=== PATIENT | female | born 1935 | race Caucasian/White ===

== ENCOUNTER 2018-03-31 16:05 | Inpatient (IN) | payer MEDICARE, OTHER ==
[2018-03-31] MEDS: SOD CHLORIDE 0.9% 500 ML IV (16:48)
[2018-03-31 16:55] LABS: ADD MAN DIFF? NO
[2018-03-31 16:59] LABS: BASOPHILS % 0.5 % (0.0-2.0); EOSINOPHILS # 0.1 10^3/ul (0.0-0.5); EOSINOPHILS % 1.2 % (0.0-7.0); HEMATOCRIT 24.5 % (37.0-47.0); HEMOGLOBIN 7.6 g/dl (12.0-16.0); LYMPHOCYTES # 0.8 10^3/ul (0.8-2.9); LYMPHOCYTES % 10.1 % (15.0-51.0); MEAN CORPUSCULAR HEMOGLOBIN 34.1 pg (29.0-33.0); MEAN CORPUSCULAR VOLUME 109.9 fl (82.0-101.0); MEAN PLATELET VOLUME 9.1 fl (7.4-10.4); MONOCYTE # 0.6 10^3/ul (0.3-0.9); MONOCYTES % 7.5 % (0.0-11.0); NEUTROPHIL # 6.5 10^3/ul (1.6-7.5); NEUTROPHILS % 80.2 % (39.0-77.0); PLATELET COUNT 223 10^3/UL (140-415); RED BLOOD COUNT 2.23 10^6/ul (4.20-5.40); RED CELL DISTRIBUTION WIDTH 13.9 % (11.5-14.5)
[2018-03-31 16:59] LABS: WHITE BLOOD COUNT 8.1 10^3/ul (4.8-10.8)
[2018-03-31 17:21] LABS: ALANINE AMINOTRANSFERASE 20 IU/L (13-69); ALBUMIN 3.9 g/dl (3.3-4.9); ALBUMIN/GLOBULIN RATIO 1.44; ALKALINE PHOSPHATASE 55 IU/L (42-121); ANION GAP 11 (5-13); ASPARTATE AMINO TRANSFERASE 27 IU/L (15-46); BLOOD UREA NITROGEN 43 mg/dl (7-20); CALCIUM 9.4 mg/dl (8.4-10.2); CARBON DIOXIDE 26 mmol/L (21-31); CHLORIDE 102 mmol/L (97-110); CREATININE 1.88 mg/dl (0.44-1.00); GLUCOSE 117 mg/dl (70-220); POTASSIUM 4.4 mmol/L (3.5-5.1); SODIUM 139 mmol/L (135-144); TOTAL PROTEIN 6.6 g/dl (6.1-8.1)
[2018-03-31 17:25] LABS: INR 1.29; PROTIME 16.2 Sec (11.9-14.9); PT RATIO 1.3
[2018-03-31 17:26] LABS: PARTIAL THROMBOPLASTIN TIME 30.1 Sec (23.0-35.0)
[2018-03-31] MEDS ORDERED: ACETAMINOPHEN 325 MG TAB PO (21:00)
[2018-03-31] MEDS ORDERED: ONDANSETRON 4 MG INJ IV (21:00)
[2018-03-31] MEDS ORDERED: NACL 0.9% 3 ML SYG IV (21:30)
[2018-03-31 23:40] LABS: IMMEDIATE SPIN CROSSMATCH 1 2
[2018-03-31] MEDS: PANTOPRAZOLE 40 MG INJ IV (23:40)
[2018-04-01] MEDS: DEXTROSE 5% 1,000 ML IV ×3 (03:11→23:13)
[2018-04-01 05:54] LABS: ADD MAN DIFF? NO
[2018-04-01] MEDS: LEVOTHYROXINE 100 MCG TAB PO (05:59)
[2018-04-01 06:00] LABS: ADD UMIC YES; UR AMORPHOUS CRYSTAL FEW /HPF (NONE SEEN); UR ASCORBIC ACID 20 mg/dL (NEGATIVE); UR BACTERIA FEW /HPF (NONE SEEN); UR BILIRUBIN (Dip) NEGATIVE (NEGATIVE); UR BLOOD (Dip) 2+ mg/dL (NEGATIVE); UR CLARITY SLIGHTLY CLOUDY (CLEAR); UR COLOR YELLOW (YELLOW); UR GLUCOSE (Dip) NEGATIVE (NEGATIVE); UR KETONES (Dip) NEGATIVE (NEGATIVE); UR LEUKOCYTE ESTERASE (Dip) 3+ Leu/ul (NEGATIVE); UR NITRITE (Dip) NEGATIVE (NEGATIVE); UR RBC 10 /HPF (0-5); UR SPECIFIC GRAVITY (Dip) 1.013 (1.003-1.030); UR SQUAMOUS EPITHELIAL CELL FEW /HPF (FEW); UR TOTAL PROTEIN (Dip) NEGATIVE (NEGATIVE); UR UROBILINOGEN (Dip) NEGATIVE (NEGATIVE); UR WBC 40 /HPF (0-5)
[2018-04-01 06:01] LABS: WHITE BLOOD COUNT 6.9 10^3/ul (4.8-10.8)
[2018-04-01 06:01] LABS: BASOPHILS % 0.4 % (0.0-2.0); EOSINOPHILS # 0.1 10^3/ul (0.0-0.5); EOSINOPHILS % 1.7 % (0.0-7.0); HEMATOCRIT 30.9 % (37.0-47.0); LYMPHOCYTES # 1.2 10^3/ul (0.8-2.9); LYMPHOCYTES % 17.5 % (15.0-51.0); MEAN CORPUSCULAR HEMOGLOBIN 32.5 pg (29.0-33.0); MEAN CORPUSCULAR HGB CONC 32.4 g/dl (32.0-37.0); MEAN CORPUSCULAR VOLUME 100.3 fl (82.0-101.0); MEAN PLATELET VOLUME 9.8 fl (7.4-10.4); MONOCYTE # 0.6 10^3/ul (0.3-0.9); MONOCYTES % 9.1 % (0.0-11.0); NEUTROPHIL # 4.9 10^3/ul (1.6-7.5); PLATELET COUNT 192 10^3/UL (140-415); RED BLOOD COUNT 3.08 10^6/ul (4.20-5.40); RED CELL DISTRIBUTION WIDTH 16.3 % (11.5-14.5)
[2018-04-01] MEDS: PANTOPRAZOLE 40 MG INJ IV ×2 (06:01→17:00)
[2018-04-01 06:30] LABS: ALANINE AMINOTRANSFERASE 15 IU/L (13-69); ALBUMIN 3.3 g/dl (3.3-4.9); ALBUMIN/GLOBULIN RATIO 1.37; ALKALINE PHOSPHATASE 42 IU/L (42-121); ANION GAP 9 (5-13); ASPARTATE AMINO TRANSFERASE 32 IU/L (15-46); BILIRUBIN,INDIRECT 0.6 mg/dl (0-1.1); BILIRUBIN,TOTAL 0.6 mg/dl (0.2-1.3); BLOOD UREA NITROGEN 41 mg/dl (7-20); CARBON DIOXIDE 23 mmol/L (21-31); CHLORIDE 109 mmol/L (97-110); CREATININE 1.67 mg/dl (0.44-1.00); GLUCOSE 93 mg/dl (70-220); POTASSIUM 4.6 mmol/L (3.5-5.1); SODIUM 141 mmol/L (135-144); TOTAL PROTEIN 5.7 g/dl (6.1-8.1)
[2018-04-01 06:41] LABS: HEMOGLOBIN A1C 5.4 % (0-5.9)
[2018-04-01] MEDS: FUROSEMIDE 40 MG TAB PO (08:45)
[2018-04-01] MEDS ORDERED: LEVOTHYROXINE (25 MCG/ML PO SYG) PO (09:00)
[2018-04-01 10:50] LABS: OCCULT BLOOD STOOL POSITIVE (NEGATIVE)
[2018-04-01 11:14] LABS: IRON 127 ug/dl (35-150)
[2018-04-01 11:23] LABS: % IRON SATURATION 50 % SAT (22-52); TOTAL IRON BINDING CAPACITY 253 ug/dl (241-421)
[2018-04-01] MEDS: BISACODYL (EC) 5 MG TAB PO (16:02)
[2018-04-01] MEDS: MAGNESIUM CITRATE 300 ML BTL PO (16:59)
[2018-04-01] MEDS: POLYETHYLENE GLYCOL 3350 119 GM POWDER PO (17:58)
[2018-04-02] MEDS: LEVOTHYROXINE 100 MCG TAB PO (05:33)
[2018-04-02 05:38] LABS: ADD MAN DIFF? NO
[2018-04-02] MEDS: PANTOPRAZOLE 40 MG INJ IV ×2 (05:49→18:34)
[2018-04-02] MEDS: POLYETHYLENE GLYCOL 3350 119 GM POWDER PO (05:50)
[2018-04-02 05:59] LABS: WHITE BLOOD COUNT 7.7 10^3/ul (4.8-10.8)
[2018-04-02 05:59] LABS: BASOPHILS % 0.5 % (0.0-2.0); EOSINOPHILS # 0.1 10^3/ul (0.0-0.5); EOSINOPHILS % 1.7 % (0.0-7.0); HEMATOCRIT 34.7 % (37.0-47.0); HEMOGLOBIN 11.7 g/dl (12.0-16.0); LYMPHOCYTES # 0.8 10^3/ul (0.8-2.9); LYMPHOCYTES % 10.4 % (15.0-51.0); MEAN CORPUSCULAR HEMOGLOBIN 33.2 pg (29.0-33.0); MEAN CORPUSCULAR HGB CONC 33.7 g/dl (32.0-37.0); MEAN CORPUSCULAR VOLUME 98.6 fl (82.0-101.0); MEAN PLATELET VOLUME 9.5 fl (7.4-10.4); MONOCYTE # 0.8 10^3/ul (0.3-0.9); MONOCYTES % 10.4 % (0.0-11.0); NEUTROPHIL # 5.9 10^3/ul (1.6-7.5); NEUTROPHILS % 76.5 % (39.0-77.0); PLATELET COUNT 195 10^3/UL (140-415); RED BLOOD COUNT 3.52 10^6/ul (4.20-5.40); RED CELL DISTRIBUTION WIDTH 15.8 % (11.5-14.5)
[2018-04-02 06:23] LABS: ANION GAP 12 (5-13); BLOOD UREA NITROGEN 35 mg/dl (7-20); CALCIUM 10.1 mg/dl (8.4-10.2); CARBON DIOXIDE 31 mmol/L (21-31); CHLORIDE 98 mmol/L (97-110); CREATININE 1.69 mg/dl (0.44-1.00); GLUCOSE 99 mg/dl (70-220); POTASSIUM 3.4 mmol/L (3.5-5.1); SODIUM 141 mmol/L (135-144)
[2018-04-02] MEDS: BISACODYL (EC) 5 MG TAB PO (08:31)
[2018-04-02] MEDS: DEXTROSE 5% 1,000 ML IV ×3 (11:00→23:30)
[2018-04-02] MEDS: POTASSIUM CHLORIDE 100 ML IVPB ×2 (13:30→16:55)
[2018-04-02] MEDS: PROPOFOL 20 ML (15:28)
[2018-04-02] MEDS ORDERED: ONDANSETRON 4 MG INJ IV (15:30)
[2018-04-02] MEDS: FUROSEMIDE 40 MG TAB PO (16:55)
[2018-04-02] MEDS: POTASSIUM CHLORIDE (SR) 20 MEQ TAB PO (20:46)
[2018-04-02] MEDS: ATORVASTATIN 10 MG TAB PO (20:47)
[2018-04-02] MEDS: SACUBITRIL/VALSARTAN (49mg-51mg) TABLET PO (20:47)
[2018-04-03 05:28] LABS: ADD MAN DIFF? NO
[2018-04-03 05:34] LABS: BASOPHILS % 0.3 % (0.0-2.0); EOSINOPHILS # 0.1 10^3/ul (0.0-0.5); EOSINOPHILS % 2.1 % (0.0-7.0); HEMOGLOBIN 10.2 g/dl (12.0-16.0); LYMPHOCYTES # 0.8 10^3/ul (0.8-2.9); LYMPHOCYTES % 12.6 % (15.0-51.0); MEAN CORPUSCULAR HEMOGLOBIN 32.7 pg (29.0-33.0); MEAN CORPUSCULAR HGB CONC 32.9 g/dl (32.0-37.0); MEAN CORPUSCULAR VOLUME 99.4 fl (82.0-101.0); MEAN PLATELET VOLUME 9.4 fl (7.4-10.4); MONOCYTE # 0.7 10^3/ul (0.3-0.9); MONOCYTES % 11.8 % (0.0-11.0); NEUTROPHIL # 4.5 10^3/ul (1.6-7.5); NEUTROPHILS % 72.7 % (39.0-77.0); PLATELET COUNT 174 10^3/UL (140-415); RED BLOOD COUNT 3.12 10^6/ul (4.20-5.40); RED CELL DISTRIBUTION WIDTH 14.8 % (11.5-14.5)
[2018-04-03 05:34] LABS: WHITE BLOOD COUNT 6.2 10^3/ul (4.8-10.8)
[2018-04-03 06:02] LABS: ALANINE AMINOTRANSFERASE 22 IU/L (13-69); ALBUMIN 3.3 g/dl (3.3-4.9); ALBUMIN/GLOBULIN RATIO 1.43; ALKALINE PHOSPHATASE 44 IU/L (42-121); ANION GAP 7 (5-13); ASPARTATE AMINO TRANSFERASE 28 IU/L (15-46); BILIRUBIN,INDIRECT 0.3 mg/dl (0-1.1); BILIRUBIN,TOTAL 0.3 mg/dl (0.2-1.3); BLOOD UREA NITROGEN 33 mg/dl (7-20); CALCIUM 8.9 mg/dl (8.4-10.2); CARBON DIOXIDE 28 mmol/L (21-31); CHLORIDE 101 mmol/L (97-110); CHOL/HDL RATIO 2.7 RATIO; CHOLESTEROL 108 mg/dl (100-200); CREATINE KINASE 55 IU/L (23-200); CREATININE 1.55 mg/dl (0.44-1.00); GLUCOSE 106 mg/dl (70-220); HDL CHOLESTEROL 40 mg/dl (33-92); LDL CHOLESTEROL,CALCULATED 51 mg/dl; POTASSIUM 4.1 mmol/L (3.5-5.1); SODIUM 136 mmol/L (135-144); TOTAL PROTEIN 5.6 g/dl (6.1-8.1); TRIGLYCERIDES 85 mg/dl (0-149)
[2018-04-03] MEDS: LEVOTHYROXINE 100 MCG TAB PO (06:03)
[2018-04-03] MEDS: PANTOPRAZOLE 40 MG INJ IV (06:03)
[2018-04-03] MEDS: DEXTROSE 5% 1,000 ML IV ×2 (06:03→12:00)
[2018-04-03 06:11] LABS: B-TYPE NATRIURETIC PEPTIDE 5130 PG/ML (0-450)
[2018-04-03 06:13] LABS: DIGOXIN < 0.4 ng/ml (1.0-2.0)
[2018-04-03 06:22] LABS: FREE T4 (FREE THYROXINE) 0.94 ng/dl (0.85-1.93)
[2018-04-03] MEDS: SACUBITRIL/VALSARTAN (49mg-51mg) TABLET PO (08:44)
[2018-04-03] MEDS: SPIRONOLACTONE 25 MG TAB PO (08:45)
[2018-04-04] MEDS ORDERED: FUROSEMIDE 40 MG TAB PO (09:00)
== END 2018-04-03 15:15 | disposition home health service (06) | DRG 378 ==
LOC: E/R 16:05 → 6WM 20:31
PROC: 0DJD8ZZ Inspection of Lower Intestinal Tract, Via Natural or Artificial Opening Endoscopic (ICD-10-PCS; principal; 2018-04-02 14:30)
PROC: 30233N1 Transfusion of Nonautologous Red Blood Cells into Peripheral Vein, Percutaneous Approach (ICD-10-PCS; 2018-04-02 14:30)
DX: K92.1 Melena (principal); D62 Acute posthemorrhagic anemia; I50.22 Chronic systolic (congestive) heart failure; I42.9 Cardiomyopathy, unspecified; N18.3 Chronic kidney disease, stage 3 (moderate); Z79.01 Long term (current) use of anticoagulants; F03.90 Unspecified dementia, unspecified severity, without behavioral disturbance, psychotic disturbance, mood disturbance, and anxiety; Z95.0 Presence of cardiac pacemaker; J44.9 Chronic obstructive pulmonary disease, unspecified; Z95.2 Presence of prosthetic heart valve; K57.30 Diverticulosis of large intestine without perforation or abscess without bleeding; K64.8 Other hemorrhoids; Z86.73 Personal history of transient ischemic attack (TIA), and cerebral infarction without residual deficits; I25.10 Atherosclerotic heart disease of native coronary artery without angina pectoris; I48.2 Chronic atrial fibrillation; I27.20 Pulmonary hypertension, unspecified; E07.9 Disorder of thyroid, unspecified
CPT/HCPCS: 36415; 36430; 71045; 74176; 80048; 80053; 80061; 80162; 81001; 82270; 82550; 82728; 83036; 83540; 83735; 83880; 84439; 84443; 85025; 85610; 85730; 86850; 86900; 86901; 86920; 97110; 97116; 97162; 97530; 99285-25

== ENCOUNTER 2018-04-19 16:45 | Inpatient (IN) | payer MEDICARE, OTHER ==
[2018-04-19] MEDS: SOD CHLORIDE 0.45% 1,000 ML IV (03:45)
[2018-04-19 17:45] LABS: ABNORMAL IP MESSAGE 1; HEMATOCRIT 19.7 % (37.0-47.0); MEAN CORPUSCULAR HGB CONC 29.9 g/dl (32.0-37.0); MEAN CORPUSCULAR VOLUME 110.1 fl (82.0-101.0); MEAN PLATELET VOLUME 9.8 fl (7.4-10.4); NUCLEATED RED BLOOD CELLS% 0.4 /100WBC (0.0-0.0); PLATELET COUNT 161 10^3/UL (140-415); RED BLOOD COUNT 1.79 10^6/ul (4.20-5.40); RED CELL DISTRIBUTION WIDTH 15.1 % (11.5-14.5)
[2018-04-19 17:45] LABS: WHITE BLOOD COUNT 8.5 10^3/ul (4.8-10.8)
[2018-04-19 17:50] LABS: POSITIVE DIFF @See below
[2018-04-19 17:52] LABS: ADD MAN DIFF? YES; HEMOGLOBIN 5.9 g/dl (12.0-16.0)
[2018-04-19 18:03] LABS: INR 1.13; PROTIME 14.6 Sec (11.9-14.9); PT RATIO 1.1
[2018-04-19 18:06] LABS: ALANINE AMINOTRANSFERASE 25 IU/L (13-69); ALBUMIN 3.5 g/dl (3.3-4.9); ALBUMIN/GLOBULIN RATIO 1.52; ALKALINE PHOSPHATASE 43 IU/L (42-121); ANION GAP 14 (5-13); ASPARTATE AMINO TRANSFERASE 25 IU/L (15-46); BILIRUBIN,INDIRECT 0.3 mg/dl (0-1.1); BILIRUBIN,TOTAL 0.3 mg/dl (0.2-1.3); BLOOD UREA NITROGEN 59 mg/dl (7-20); CALCIUM 9.3 mg/dl (8.4-10.2); CARBON DIOXIDE 20 mmol/L (21-31); CHLORIDE 104 mmol/L (97-110); GLUCOSE 133 mg/dl (70-220); POTASSIUM 4.4 mmol/L (3.5-5.1); SODIUM 138 mmol/L (135-144); TOTAL PROTEIN 5.8 g/dl (6.1-8.1)
[2018-04-19 18:14] LABS: ANISOCYTOSIS 1+ (0-0); GIANT THROMBO% (M) 1 % (0-0); HYPOCHROMASIA 1+ (0-0); LYMPHOCYTES #M 0.9 10^3/ul (0.8-2.9); LYMPHOCYTES % (M) 11 % (15-51); MICROCYTOSIS 1+ (0-0); MONOCYTE #M 0.7 10^3/ul (0.3-0.9); MONOCYTES % (M) 9 % (0-11); PLATELET ESTIMATE NORMAL; POLYCHROMASIA 3+ (0-0); REACTIVE LYMPHOCYTES% (M) 1 % (0-0); SEGMENTED NEUTROPHILS (M) % 79 % (39-77); SMUDGE%M 2 % (0-0)
[2018-04-19 18:18] LABS: TROPONIN-I 0.091 ng/ml (0.000-0.120)
[2018-04-19] MEDS ORDERED: HYDROCODONE/APAP (5/325) TAB PO (19:00)
[2018-04-19] MEDS ORDERED: morphine 2 MG INJ IV (19:00)
[2018-04-19] MEDS ORDERED: ALBUTEROL/IPRATROPIUM (NEB) 3 ML AMP HHN (19:00)
[2018-04-19] MEDS ORDERED: ONDANSETRON 4 MG INJ IV ×2 (19:00→19:30)
[2018-04-19] MEDS ORDERED: LORAZEPAM 2 MG INJ IV (19:00)
[2018-04-19] MEDS ORDERED: hydrALAzine 20 MG INJ IV (19:00)
[2018-04-19] MEDS ORDERED: NITROGLYCERIN (SL) 0.4 MG TAB SL (19:00)
[2018-04-19] MEDS ORDERED: NACL 0.9% 3 ML SYG IV (19:00)
[2018-04-19] MEDS ORDERED: ACETAMINOPHEN 325 MG TAB PO (19:30)
[2018-04-19 19:34] LABS: FREE T4 (FREE THYROXINE) 2.01 ng/dl (0.85-1.93)
[2018-04-19 20:00] LABS: B-TYPE NATRIURETIC PEPTIDE 10300 PG/ML (0-450)
[2018-04-19 23:15] LABS: IMMEDIATE SPIN CROSSMATCH 1 2
[2018-04-19] MEDS: ATORVASTATIN 10 MG TAB PO (23:24)
[2018-04-19] MEDS: PANTOPRAZOLE 40 MG INJ IV (23:24)
[2018-04-19] MEDS: CALCIUM CARBONATE 1.25 GM TAB PO (23:24)
[2018-04-20 05:46] LABS: ADD MAN DIFF? NO; BASOPHILS % 0.3 % (0.0-2.0); EOSINOPHILS % 0.3 % (0.0-7.0); HEMOGLOBIN 8.8 g/dl (12.0-16.0); LYMPHOCYTES # 0.8 10^3/ul (0.8-2.9); LYMPHOCYTES % 12.4 % (15.0-51.0); MEAN CORPUSCULAR HEMOGLOBIN 31.1 pg (29.0-33.0); MEAN CORPUSCULAR HGB CONC 32.6 g/dl (32.0-37.0); MEAN CORPUSCULAR VOLUME 95.4 fl (82.0-101.0); MEAN PLATELET VOLUME 9.4 fl (7.4-10.4); MONOCYTE # 0.6 10^3/ul (0.3-0.9); MONOCYTES % 8.8 % (0.0-11.0); NEUTROPHIL # 5.2 10^3/ul (1.6-7.5); NEUTROPHILS % 77.8 % (39.0-77.0); NUCLEATED RED BLOOD CELLS% 0.3 /100WBC (0.0-0.0); PLATELET COUNT 114 10^3/UL (140-415); RED BLOOD COUNT 2.83 10^6/ul (4.20-5.40); RED CELL DISTRIBUTION WIDTH 19.3 % (11.5-14.5)
[2018-04-20 05:46] LABS: WHITE BLOOD COUNT 6.7 10^3/ul (4.8-10.8)
[2018-04-20] MEDS ORDERED: PANTOPRAZOLE (EC) 40 MG TAB PO (06:00)
[2018-04-20] MEDS: PANTOPRAZOLE 40 MG INJ IV ×2 (06:01→20:53)
[2018-04-20 06:12] LABS: CHOLESTEROL 71 mg/dl (100-200)
[2018-04-20 06:12] LABS: ANION GAP 9 (5-13); BLOOD UREA NITROGEN 57 mg/dl (7-20); CALCIUM 8.7 mg/dl (8.4-10.2); CARBON DIOXIDE 25 mmol/L (21-31); CHLORIDE 104 mmol/L (97-110); CHOL/HDL RATIO 2.1 RATIO; CREATININE 2.02 mg/dl (0.44-1.00); GLUCOSE 78 mg/dl (70-220); HDL CHOLESTEROL 33 mg/dl (33-92); LDL CHOLESTEROL,CALCULATED 26 mg/dl; MAGNESIUM 2.4 mg/dl (1.7-2.5); PHOSPHORUS 5.1 mg/dl (2.5-4.9); POTASSIUM 4.2 mmol/L (3.5-5.1); SODIUM 138 mmol/L (135-144); TRIGLYCERIDES 58 mg/dl (0-149)
[2018-04-20 06:36] LABS: THYROID STIMULATING HORMONE 0.838 MIU/L (0.465-4.680)
[2018-04-20] MEDS: LEVOTHYROXINE 100 MCG TAB PO (06:41)
[2018-04-20 06:56] LABS: HEMOGLOBIN A1C 5.1 % (0-5.9)
[2018-04-20] MEDS: CYANOCOBALAMIN 500 MCG TAB PO (09:00)
[2018-04-20] MEDS: CALCIUM CARBONATE 1.25 GM TAB PO ×2 (09:00→21:00)
[2018-04-20] MEDS: MULTIVITAMINS/MINERALS TAB PO (09:00)
[2018-04-20] MEDS: PROPOFOL 20 ML (13:15)
[2018-04-20 19:04] LABS: HEMATOCRIT 31.4 % (37.0-47.0)
[2018-04-20] MEDS: ATORVASTATIN 10 MG TAB PO (21:00)
[2018-04-20 22:38] LABS: CREATININE,URINE RANDOM 76.57 mg/dl (20-320)
[2018-04-20 22:39] LABS: ADD UMIC YES; UR ASCORBIC ACID 20 mg/dL (NEGATIVE); UR BACTERIA FEW /HPF (NONE SEEN); UR BILIRUBIN (Dip) NEGATIVE (NEGATIVE); UR BLOOD (Dip) 3+ mg/dL (NEGATIVE); UR CLARITY CLOUDY (CLEAR); UR COLOR YELLOW (YELLOW); UR GLUCOSE (Dip) NEGATIVE (NEGATIVE); UR KETONES (Dip) TRACE mg/dL (NEGATIVE); UR LEUKOCYTE ESTERASE (Dip) 3+ Leu/ul (NEGATIVE); UR NITRITE (Dip) NEGATIVE (NEGATIVE); UR RBC 6 /HPF (0-5); UR SPECIFIC GRAVITY (Dip) 1.014 (1.003-1.030); UR SQUAMOUS EPITHELIAL CELL FEW /HPF (FEW); UR TOTAL PROTEIN (Dip) NEGATIVE (NEGATIVE); UR UROBILINOGEN (Dip) NEGATIVE (NEGATIVE); UR WBC > 182 /HPF (0-5)
[2018-04-20 22:44] LABS: SODIUM,URINE RANDOM 66 mmol/L (30-90)
[2018-04-21 00:55] LABS: HEMATOCRIT 29.2 % (37.0-47.0); HEMOGLOBIN 9.5 g/dl (12.0-16.0)
[2018-04-21 05:55] LABS: ADD MAN DIFF? NO
[2018-04-21 06:02] LABS: BASOPHILS % 0.5 % (0.0-2.0); EOSINOPHILS # 0.2 10^3/ul (0.0-0.5); EOSINOPHILS % 2.5 % (0.0-7.0); LYMPHOCYTES # 0.7 10^3/ul (0.8-2.9); LYMPHOCYTES % 10.8 % (15.0-51.0); MEAN CORPUSCULAR HEMOGLOBIN 31.4 pg (29.0-33.0); MEAN CORPUSCULAR HGB CONC 32.1 g/dl (32.0-37.0); MEAN CORPUSCULAR VOLUME 97.6 fl (82.0-101.0); MEAN PLATELET VOLUME 9.5 fl (7.4-10.4); MONOCYTE # 0.5 10^3/ul (0.3-0.9); MONOCYTES % 8.3 % (0.0-11.0); NEUTROPHILS % 77.4 % (39.0-77.0); NUCLEATED RED BLOOD CELLS% 0.3 /100WBC (0.0-0.0); PLATELET COUNT 107 10^3/UL (140-415); RED BLOOD COUNT 2.87 10^6/ul (4.20-5.40); RED CELL DISTRIBUTION WIDTH 19.9 % (11.5-14.5)
[2018-04-21 06:02] LABS: WHITE BLOOD COUNT 6.4 10^3/ul (4.8-10.8)
[2018-04-21] MEDS: LEVOTHYROXINE 100 MCG TAB PO (06:02)
[2018-04-21] MEDS: PANTOPRAZOLE 40 MG INJ IV ×2 (06:02→17:36)
[2018-04-21 06:48] LABS: ANION GAP 12 (5-13); BLOOD UREA NITROGEN 51 mg/dl (7-20); CALCIUM 8.9 mg/dl (8.4-10.2); CARBON DIOXIDE 20 mmol/L (21-31); CHLORIDE 108 mmol/L (97-110); CREATININE 1.67 mg/dl (0.44-1.00); POTASSIUM 4.3 mmol/L (3.5-5.1); SODIUM 140 mmol/L (135-144)
[2018-04-21 07:18] LABS: GLUCOSE 42 mg/dl (70-220)
[2018-04-21] MEDS: DEXTROSE 50% 50 ML SYRINGE IV (07:36)
[2018-04-21] MEDS: CALCIUM CARBONATE 1.25 GM TAB PO ×2 (08:22→21:00)
[2018-04-21] MEDS: MULTIVITAMINS/MINERALS TAB PO (08:22)
[2018-04-21] MEDS: CYANOCOBALAMIN 500 MCG TAB PO (08:22)
[2018-04-21] MEDS: DEXTROSE 5%-0.45% NACL 1,000 ML IV (11:03)
[2018-04-21] MEDS: BARIUM SULF 2% 450 ML BTL (BERRY SMOOTHIE) PO (13:31)
[2018-04-21 14:08] LABS: HEMATOCRIT 29.2 % (37.0-47.0); HEMOGLOBIN 9.2 g/dl (12.0-16.0)
[2018-04-21 19:17] LABS: HEMATOCRIT 28.9 % (37.0-47.0); HEMOGLOBIN 9.4 g/dl (12.0-16.0)
[2018-04-21] MEDS: ATORVASTATIN 10 MG TAB PO (21:00)
[2018-04-21] MEDS ORDERED: VITAMIN A & D 5 GM OINT PACKET TOP (21:37)
[2018-04-22 00:59] LABS: HEMATOCRIT 25.4 % (37.0-47.0); HEMOGLOBIN 8.3 g/dl (12.0-16.0)
[2018-04-22] MEDS: DEXTROSE 5%-0.45% NACL 1,000 ML IV (03:59)
[2018-04-22 06:35] LABS: ADD MAN DIFF? NO
[2018-04-22 06:51] LABS: WHITE BLOOD COUNT 6.3 10^3/ul (4.8-10.8)
[2018-04-22 06:51] LABS: ABNORMAL IP MESSAGE 1; BASOPHILS % 0.3 % (0.0-2.0); EOSINOPHILS # 0.2 10^3/ul (0.0-0.5); EOSINOPHILS % 2.7 % (0.0-7.0); HEMATOCRIT 26.9 % (37.0-47.0); HEMOGLOBIN 8.7 g/dl (12.0-16.0); LYMPHOCYTES # 0.7 10^3/ul (0.8-2.9); LYMPHOCYTES % 11.4 % (15.0-51.0); MEAN CORPUSCULAR HEMOGLOBIN 31.2 pg (29.0-33.0); MEAN CORPUSCULAR HGB CONC 32.3 g/dl (32.0-37.0); MEAN CORPUSCULAR VOLUME 96.4 fl (82.0-101.0); MEAN PLATELET VOLUME 9.5 fl (7.4-10.4); MONOCYTE # 0.7 10^3/ul (0.3-0.9); MONOCYTES % 11.1 % (0.0-11.0); NEUTROPHIL # 4.7 10^3/ul (1.6-7.5); NUCLEATED RED BLOOD CELLS% 0.3 /100WBC (0.0-0.0); PLATELET COUNT 93 10^3/UL (140-415); RED BLOOD COUNT 2.79 10^6/ul (4.20-5.40); RED CELL DISTRIBUTION WIDTH 18.6 % (11.5-14.5)
[2018-04-22 06:57] LABS: ANION GAP 7 (5-13); BLOOD UREA NITROGEN 39 mg/dl (7-20); CALCIUM 8.6 mg/dl (8.4-10.2); CARBON DIOXIDE 22 mmol/L (21-31); CHLORIDE 108 mmol/L (97-110); CREATININE 1.34 mg/dl (0.44-1.00); GLUCOSE 79 mg/dl (70-220); POTASSIUM 3.6 mmol/L (3.5-5.1); SODIUM 137 mmol/L (135-144)
[2018-04-22] MEDS: PANTOPRAZOLE 40 MG INJ IV ×2 (06:59→17:29)
[2018-04-22 07:18] LABS: POSITIVE DIFF @See below
[2018-04-22] MEDS: CYANOCOBALAMIN 500 MCG TAB PO (09:00)
[2018-04-22] MEDS: MULTIVITAMINS/MINERALS TAB PO (09:00)
[2018-04-22] MEDS: CALCIUM CARBONATE 1.25 GM TAB PO ×2 (09:00→20:52)
[2018-04-22] MEDS: LEVOTHYROXINE 100 MCG TAB PO (09:41)
[2018-04-22 14:03] LABS: HEMATOCRIT 30.2 % (37.0-47.0); HEMOGLOBIN 9.9 g/dl (12.0-16.0)
[2018-04-22 18:13] LABS: HEMATOCRIT 27.9 % (37.0-47.0); HEMOGLOBIN 9.1 g/dl (12.0-16.0)
[2018-04-22] MEDS: ATORVASTATIN 10 MG TAB PO (20:52)
[2018-04-22] MEDS: SOD CHLORIDE 0.9% 250 ML IV (22:39)
[2018-04-23] MEDS: SOD CHLORIDE 0.9% 250 ML IV (00:48)
[2018-04-23 01:20] LABS: HEMATOCRIT 23.7 % (37.0-47.0); HEMOGLOBIN 7.6 g/dl (12.0-16.0)
[2018-04-23 05:41] LABS: ADD MAN DIFF? NO
[2018-04-23 05:46] LABS: WHITE BLOOD COUNT 6.5 10^3/ul (4.8-10.8)
[2018-04-23 05:46] LABS: ABNORMAL IP MESSAGE 1; BASOPHILS % 0.5 % (0.0-2.0); EOSINOPHILS # 0.1 10^3/ul (0.0-0.5); EOSINOPHILS % 1.8 % (0.0-7.0); HEMATOCRIT 26.4 % (37.0-47.0); HEMOGLOBIN 8.4 g/dl (12.0-16.0); LYMPHOCYTES # 0.6 10^3/ul (0.8-2.9); MEAN CORPUSCULAR HGB CONC 31.8 g/dl (32.0-37.0); MEAN CORPUSCULAR VOLUME 97.4 fl (82.0-101.0); MEAN PLATELET VOLUME 9.9 fl (7.4-10.4); MONOCYTE # 0.7 10^3/ul (0.3-0.9); MONOCYTES % 11.2 % (0.0-11.0); NEUTROPHIL # 5.1 10^3/ul (1.6-7.5); NEUTROPHILS % 77.6 % (39.0-77.0); NUCLEATED RED BLOOD CELLS% 0.3 /100WBC (0.0-0.0); RED BLOOD COUNT 2.71 10^6/ul (4.20-5.40); RED CELL DISTRIBUTION WIDTH 18.6 % (11.5-14.5)
[2018-04-23 06:16] LABS: POSITIVE DIFF @See below
[2018-04-23 06:17] LABS: LYMPHOCYTES % 8.4 % (15.0-51.0); PLATELET COUNT 79 10^3/UL (140-415)
[2018-04-23 06:21] LABS: ANION GAP 11 (5-13); BLOOD UREA NITROGEN 42 mg/dl (7-20); CALCIUM 8.7 mg/dl (8.4-10.2); CARBON DIOXIDE 23 mmol/L (21-31); CHLORIDE 107 mmol/L (97-110); CREATININE 1.37 mg/dl (0.44-1.00); GLUCOSE 105 mg/dl (70-220); POTASSIUM 3.6 mmol/L (3.5-5.1); SODIUM 141 mmol/L (135-144)
[2018-04-23] MEDS: LEVOTHYROXINE 100 MCG TAB PO (07:00)
[2018-04-23] MEDS: PANTOPRAZOLE 40 MG INJ IV ×2 (07:00→17:26)
[2018-04-23] MEDS: MULTIVITAMINS/MINERALS TAB PO (08:18)
[2018-04-23] MEDS: CALCIUM CARBONATE 1.25 GM TAB PO ×2 (08:18→20:36)
[2018-04-23] MEDS: CYANOCOBALAMIN 500 MCG TAB PO (08:18)
[2018-04-23 12:34] LABS: HEMATOCRIT 30.2 % (37.0-47.0); HEMOGLOBIN 9.5 g/dl (12.0-16.0)
[2018-04-23 16:11] LABS: CREATININE, RANDOM URINE 72 mg/dL (20-275); MICROALBUMIN 1.1 mg/dL; MICROALBUMIN/CREATININE RATIO 15 (<30)
[2018-04-23] MEDS: ATORVASTATIN 10 MG TAB PO (20:37)
[2018-04-24] MEDS: PANTOPRAZOLE 40 MG INJ IV (05:25)
[2018-04-24 05:47] LABS: ADD MAN DIFF? NO
[2018-04-24 05:51] LABS: WHITE BLOOD COUNT 8.2 10^3/ul (4.8-10.8)
[2018-04-24 05:51] LABS: ABNORMAL IP MESSAGE 1; BASOPHILS % 0.2 % (0.0-2.0); EOSINOPHILS # 0.2 10^3/ul (0.0-0.5); LYMPHOCYTES # 1.2 10^3/ul (0.8-2.9); MEAN CORPUSCULAR HEMOGLOBIN 31.9 pg (29.0-33.0); MEAN CORPUSCULAR VOLUME 99.6 fl (82.0-101.0); MEAN PLATELET VOLUME 10.2 fl (7.4-10.4); MONOCYTE # 0.8 10^3/ul (0.3-0.9); MONOCYTES % 9.3 % (0.0-11.0); NEUTROPHIL # 6.1 10^3/ul (1.6-7.5); NEUTROPHILS % 74.1 % (39.0-77.0); PLATELET COUNT 72 10^3/UL (140-415); RED BLOOD COUNT 2.51 10^6/ul (4.20-5.40); RED CELL DISTRIBUTION WIDTH 18.4 % (11.5-14.5)
[2018-04-24 05:56] LABS: POSITIVE DIFF @See below
[2018-04-24] MEDS: LEVOTHYROXINE 100 MCG TAB PO (06:13)
[2018-04-24 07:03] LABS: ANION GAP 8 (5-13); BLOOD UREA NITROGEN 47 mg/dl (7-20); CARBON DIOXIDE 21 mmol/L (21-31); CHLORIDE 111 mmol/L (97-110); CREATININE 1.41 mg/dl (0.44-1.00); GLUCOSE 92 mg/dl (70-220); POTASSIUM 3.8 mmol/L (3.5-5.1); SODIUM 140 mmol/L (135-144)
[2018-04-24] MEDS: MULTIVITAMINS/MINERALS TAB PO (08:36)
[2018-04-24] MEDS: CALCIUM CARBONATE 1.25 GM TAB PO ×2 (08:36→20:28)
[2018-04-24] MEDS: CYANOCOBALAMIN 500 MCG TAB PO (08:36)
[2018-04-24] MEDS: PANTOPRAZOLE (EC) 40 MG TAB PO (17:15)
[2018-04-24] MEDS: ATORVASTATIN 10 MG TAB PO (20:28)
[2018-04-25 05:32] LABS: ADD MAN DIFF? NO
[2018-04-25 05:36] LABS: WHITE BLOOD COUNT 7.5 10^3/ul (4.8-10.8)
[2018-04-25 05:36] LABS: ABNORMAL IP MESSAGE 1; BASOPHILS % 0.3 % (0.0-2.0); EOSINOPHILS # 0.2 10^3/ul (0.0-0.5); HEMATOCRIT 22.8 % (37.0-47.0); HEMOGLOBIN 7.1 g/dl (12.0-16.0); LYMPHOCYTES # 0.5 10^3/ul (0.8-2.9); LYMPHOCYTES % 7.2 % (15.0-51.0); MEAN CORPUSCULAR HEMOGLOBIN 31.1 pg (29.0-33.0); MEAN CORPUSCULAR HGB CONC 31.1 g/dl (32.0-37.0); MEAN PLATELET VOLUME 9.9 fl (7.4-10.4); MONOCYTE # 0.6 10^3/ul (0.3-0.9); MONOCYTES % 8.6 % (0.0-11.0); NEUTROPHIL # 6.1 10^3/ul (1.6-7.5); NEUTROPHILS % 81.5 % (39.0-77.0); PLATELET COUNT 63 10^3/UL (140-415); RED BLOOD COUNT 2.28 10^6/ul (4.20-5.40); RED CELL DISTRIBUTION WIDTH 18.6 % (11.5-14.5)
[2018-04-25 05:44] LABS: POSITIVE DIFF @See below
[2018-04-25] MEDS: PANTOPRAZOLE (EC) 40 MG TAB PO ×2 (06:09→19:18)
[2018-04-25] MEDS: LEVOTHYROXINE 100 MCG TAB PO (06:09)
[2018-04-25 06:14] LABS: INR 0.98; PROTIME 13.1 Sec (11.9-14.9)
[2018-04-25 06:20] LABS: ANION GAP 7 (5-13); BLOOD UREA NITROGEN 51 mg/dl (7-20); CALCIUM 8.9 mg/dl (8.4-10.2); CARBON DIOXIDE 22 mmol/L (21-31); CHLORIDE 113 mmol/L (97-110); GLUCOSE 97 mg/dl (70-220); POTASSIUM 3.7 mmol/L (3.5-5.1); SODIUM 142 mmol/L (135-144)
[2018-04-25] MEDS: CALCIUM CARBONATE 1.25 GM TAB PO ×2 (08:21→20:18)
[2018-04-25] MEDS: CYANOCOBALAMIN 500 MCG TAB PO (08:21)
[2018-04-25] MEDS: MULTIVITAMINS/MINERALS TAB PO (08:21)
[2018-04-25 10:19] LABS: IMMEDIATE SPIN CROSSMATCH 1 1
[2018-04-25] MEDS: SOD CHLORIDE 0.9% 250 ML IV* (10:50)
[2018-04-25] MEDS: ATORVASTATIN 10 MG TAB PO (20:18)
[2018-04-26 05:43] LABS: ADD MAN DIFF? NO
[2018-04-26 05:52] LABS: ABNORMAL IP MESSAGE 1; BASOPHILS % 0.5 % (0.0-2.0); EOSINOPHILS # 0.2 10^3/ul (0.0-0.5); EOSINOPHILS % 2.5 % (0.0-7.0); HEMATOCRIT 27.4 % (37.0-47.0); HEMOGLOBIN 8.8 g/dl (12.0-16.0); LYMPHOCYTES # 0.7 10^3/ul (0.8-2.9); LYMPHOCYTES % 8.7 % (15.0-51.0); MEAN CORPUSCULAR HEMOGLOBIN 31.7 pg (29.0-33.0); MEAN CORPUSCULAR HGB CONC 32.1 g/dl (32.0-37.0); MEAN CORPUSCULAR VOLUME 98.6 fl (82.0-101.0); MEAN PLATELET VOLUME 10.4 fl (7.4-10.4); MONOCYTE # 0.8 10^3/ul (0.3-0.9); MONOCYTES % 9.8 % (0.0-11.0); NEUTROPHIL # 6.5 10^3/ul (1.6-7.5); NEUTROPHILS % 78.1 % (39.0-77.0); PLATELET COUNT 59 10^3/UL (140-415); RED BLOOD COUNT 2.78 10^6/ul (4.20-5.40); RED CELL DISTRIBUTION WIDTH 17.6 % (11.5-14.5)
[2018-04-26 05:52] LABS: WHITE BLOOD COUNT 8.3 10^3/ul (4.8-10.8)
[2018-04-26] MEDS: LEVOTHYROXINE 100 MCG TAB PO (06:02)
[2018-04-26] MEDS: PANTOPRAZOLE (EC) 40 MG TAB PO ×2 (06:02→17:23)
[2018-04-26 06:16] LABS: POSITIVE DIFF @See below
[2018-04-26 06:20] LABS: ANION GAP 8 (5-13); BLOOD UREA NITROGEN 49 mg/dl (7-20); CARBON DIOXIDE 23 mmol/L (21-31); CHLORIDE 110 mmol/L (97-110); CREATININE 1.24 mg/dl (0.44-1.00); GLUCOSE 95 mg/dl (70-220); SODIUM 141 mmol/L (135-144)
[2018-04-26] MEDS: CALCIUM CARBONATE 1.25 GM TAB PO ×2 (08:45→20:56)
[2018-04-26] MEDS: CYANOCOBALAMIN 500 MCG TAB PO (08:45)
[2018-04-26] MEDS: MULTIVITAMINS/MINERALS TAB PO (08:45)
[2018-04-26] MEDS: POLYETHYLENE GLYCOL 17 GM PACKET PO (12:07)
[2018-04-26 15:54] LABS: PLATELET COUNT 61 10^3/UL (140-415)
[2018-04-26 16:16] LABS: INR 0.99; PROTIME 13.2 Sec (11.9-14.9)
[2018-04-26 16:19] LABS: LACTATE DEHYDROGENASE 628 IU/L (313-618)
[2018-04-26 16:20] LABS: THROMBIN TIME 14.4 SEC (13.8-19.1)
[2018-04-26 16:24] LABS: D-DIMER 1855.14 ng/ml (<460)
[2018-04-26 17:21] LABS: FIBRIN SPLIT PRODUCT <10 ug/ml (<10)
[2018-04-26] MEDS: ATORVASTATIN 10 MG TAB PO (20:58)
[2018-04-27 06:07] LABS: ADD MAN DIFF? NO
[2018-04-27 06:11] LABS: ABNORMAL IP MESSAGE 1; BASOPHILS % 0.4 % (0.0-2.0); EOSINOPHILS # 0.2 10^3/ul (0.0-0.5); EOSINOPHILS % 1.8 % (0.0-7.0); HEMATOCRIT 25.5 % (37.0-47.0); HEMOGLOBIN 8.1 g/dl (12.0-16.0); LYMPHOCYTES # 0.6 10^3/ul (0.8-2.9); LYMPHOCYTES % 6.9 % (15.0-51.0); MEAN CORPUSCULAR HEMOGLOBIN 31.9 pg (29.0-33.0); MEAN CORPUSCULAR HGB CONC 31.8 g/dl (32.0-37.0); MEAN CORPUSCULAR VOLUME 100.4 fl (82.0-101.0); MEAN PLATELET VOLUME 10.4 fl (7.4-10.4); MONOCYTE # 0.9 10^3/ul (0.3-0.9); MONOCYTES % 11.2 % (0.0-11.0); NEUTROPHIL # 6.6 10^3/ul (1.6-7.5); NEUTROPHILS % 79.3 % (39.0-77.0); PLATELET COUNT 69 10^3/UL (140-415); RED BLOOD COUNT 2.54 10^6/ul (4.20-5.40); RED CELL DISTRIBUTION WIDTH 17.5 % (11.5-14.5)
[2018-04-27 06:11] LABS: WHITE BLOOD COUNT 8.3 10^3/ul (4.8-10.8)
[2018-04-27 06:21] LABS: POSITIVE DIFF @See below
[2018-04-27 06:49] LABS: BLOOD UREA NITROGEN 47 mg/dl (7-20); CARBON DIOXIDE 21 mmol/L (21-31); CHLORIDE 110 mmol/L (97-110); CREATININE 1.32 mg/dl (0.44-1.00); GLUCOSE 97 mg/dl (70-220)
[2018-04-27 06:50] LABS: ANION GAP 7 (5-13); CALCIUM 9.1 mg/dl (8.4-10.2); SODIUM 138 mmol/L (135-144)
[2018-04-27] MEDS: PANTOPRAZOLE (EC) 40 MG TAB PO ×2 (06:52→18:36)
[2018-04-27] MEDS: DOCUSATE SODIUM 100 MG CAP PO (06:53)
[2018-04-27] MEDS: LEVOTHYROXINE 100 MCG TAB PO (06:53)
[2018-04-27] MEDS: MULTIVITAMINS/MINERALS TAB PO (08:34)
[2018-04-27] MEDS: CALCIUM CARBONATE 1.25 GM TAB PO ×2 (08:34→21:00)
[2018-04-27] MEDS: CYANOCOBALAMIN 500 MCG TAB PO (08:34)
[2018-04-27] MEDS: POLYETHYLENE GLYCOL 17 GM PACKET PO (08:36)
[2018-04-27 10:49] LABS: IRON 31 ug/dl (35-150)
[2018-04-27 10:59] LABS: % IRON SATURATION 14 % SAT (22-52); TOTAL IRON BINDING CAPACITY 219 ug/dl (241-421)
[2018-04-27] MEDS: ATORVASTATIN 10 MG TAB PO (21:21)
[2018-04-28] MEDS: PANTOPRAZOLE (EC) 40 MG TAB PO ×2 (06:43→17:28)
[2018-04-28] MEDS: LEVOTHYROXINE 100 MCG TAB PO (06:43)
[2018-04-28] MEDS: MAGNESIUM HYDROXIDE 30ML CUP PO (06:47)
[2018-04-28] MEDS: DOCUSATE SODIUM 100 MG CAP PO ×2 (06:47→20:45)
[2018-04-28 08:27] LABS: ADD MAN DIFF? NO
[2018-04-28 08:28] LABS: WHITE BLOOD COUNT 6.8 10^3/ul (4.8-10.8)
[2018-04-28 08:28] LABS: ABNORMAL IP MESSAGE 1; BASOPHILS % 0.4 % (0.0-2.0); EOSINOPHILS # 0.2 10^3/ul (0.0-0.5); EOSINOPHILS % 2.8 % (0.0-7.0); HEMATOCRIT 22.3 % (37.0-47.0); HEMOGLOBIN 7.3 g/dl (12.0-16.0); LYMPHOCYTES # 0.7 10^3/ul (0.8-2.9); LYMPHOCYTES % 10.3 % (15.0-51.0); MEAN CORPUSCULAR HGB CONC 32.7 g/dl (32.0-37.0); MEAN CORPUSCULAR VOLUME 100.9 fl (82.0-101.0); MEAN PLATELET VOLUME 10.1 fl (7.4-10.4); MONOCYTE # 0.8 10^3/ul (0.3-0.9); MONOCYTES % 11.6 % (0.0-11.0); NEUTROPHIL # 5.1 10^3/ul (1.6-7.5); NEUTROPHILS % 74.3 % (39.0-77.0); PLATELET COUNT 75 10^3/UL (140-415); POSITIVE DIFF @See below; RED BLOOD COUNT 2.21 10^6/ul (4.20-5.40); RED CELL DISTRIBUTION WIDTH 17.3 % (11.5-14.5)
[2018-04-28] MEDS: POLYETHYLENE GLYCOL 17 GM PACKET PO (09:29)
[2018-04-28] MEDS: MULTIVITAMINS/MINERALS TAB PO (09:29)
[2018-04-28] MEDS: CYANOCOBALAMIN 500 MCG TAB PO (09:29)
[2018-04-28] MEDS: CALCIUM CARBONATE 1.25 GM TAB PO ×2 (09:29→20:45)
[2018-04-28 14:13] LABS: OCCULT BLOOD STOOL POSITIVE (NEGATIVE)
[2018-04-28] MEDS: ATORVASTATIN 10 MG TAB PO (20:45)
[2018-04-29 05:13] LABS: ABNORMAL IP MESSAGE 1; ADD MAN DIFF? NO; BASOPHILS % 0.5 % (0.0-2.0); EOSINOPHILS # 0.2 10^3/ul (0.0-0.5); EOSINOPHILS % 2.5 % (0.0-7.0); HEMATOCRIT 20.4 % (37.0-47.0); LYMPHOCYTES # 0.7 10^3/ul (0.8-2.9); LYMPHOCYTES % 11.5 % (15.0-51.0); MEAN CORPUSCULAR HEMOGLOBIN 31.7 pg (29.0-33.0); MEAN CORPUSCULAR HGB CONC 30.9 g/dl (32.0-37.0); MEAN CORPUSCULAR VOLUME 102.5 fl (82.0-101.0); MEAN PLATELET VOLUME 9.8 fl (7.4-10.4); MONOCYTE # 0.7 10^3/ul (0.3-0.9); NEUTROPHIL # 4.4 10^3/ul (1.6-7.5); PLATELET COUNT 80 10^3/UL (140-415); RED BLOOD COUNT 1.99 10^6/ul (4.20-5.40); RED CELL DISTRIBUTION WIDTH 17.2 % (11.5-14.5)
[2018-04-29 05:13] LABS: WHITE BLOOD COUNT 5.9 10^3/ul (4.8-10.8)
[2018-04-29 05:36] LABS: ANION GAP 6 (5-13); BLOOD UREA NITROGEN 45 mg/dl (7-20); CALCIUM 9.3 mg/dl (8.4-10.2); CARBON DIOXIDE 23 mmol/L (21-31); CHLORIDE 108 mmol/L (97-110); CREATININE 1.32 mg/dl (0.44-1.00); GLUCOSE 114 mg/dl (70-220); POTASSIUM 4.5 mmol/L (3.5-5.1); SODIUM 137 mmol/L (135-144)
[2018-04-29 05:39] LABS: HEMOGLOBIN 6.3 g/dl (12.0-16.0); POSITIVE DIFF @See below
[2018-04-29] MEDS: LEVOTHYROXINE 100 MCG TAB PO (06:57)
[2018-04-29] MEDS: PANTOPRAZOLE (EC) 40 MG TAB PO ×2 (06:57→19:02)
[2018-04-29] MEDS: DOCUSATE SODIUM 100 MG CAP PO (06:57)
[2018-04-29] MEDS: SOD CHLORIDE 0.9% 250 ML IV* (08:12)
[2018-04-29] MEDS: CALCIUM CARBONATE 1.25 GM TAB PO ×2 (08:37→21:35)
[2018-04-29] MEDS: CYANOCOBALAMIN 500 MCG TAB PO (08:37)
[2018-04-29] MEDS: MULTIVITAMINS/MINERALS TAB PO (08:38)
[2018-04-29] MEDS: POLYETHYLENE GLYCOL 17 GM PACKET PO (08:39)
[2018-04-29] MEDS: LIDOCAINE 1% (MPF) 5 ML VIAL SC (09:30)
[2018-04-29 14:15] LABS: CARCINOEMBRYONIC ANTIGEN 3.2 ng/ml (0.0-5.0)
[2018-04-29 18:30] LABS: IMMEDIATE SPIN CROSSMATCH 1 4
[2018-04-29] MEDS: ATORVASTATIN 10 MG TAB PO (21:35)
[2018-04-30] MEDS: PANTOPRAZOLE (EC) 40 MG TAB PO ×2 (06:03→18:20)
[2018-04-30] MEDS: LEVOTHYROXINE 100 MCG TAB PO (06:03)
[2018-04-30] MEDS: CYANOCOBALAMIN 500 MCG TAB PO (09:00)
[2018-04-30] MEDS: CALCIUM CARBONATE 1.25 GM TAB PO ×2 (09:00→21:01)
[2018-04-30] MEDS: POLYETHYLENE GLYCOL 17 GM PACKET PO (09:00)
[2018-04-30] MEDS: MULTIVITAMINS/MINERALS TAB PO (09:00)
[2018-04-30 10:43] LABS: ADD MAN DIFF? NO
[2018-04-30 10:51] LABS: ABNORMAL IP MESSAGE 1; BASOPHILS % 0.6 % (0.0-2.0); EOSINOPHILS # 0.1 10^3/ul (0.0-0.5); EOSINOPHILS % 1.8 % (0.0-7.0); HEMATOCRIT 27.8 % (37.0-47.0); HEMOGLOBIN 9.3 g/dl (12.0-16.0); LYMPHOCYTES # 0.7 10^3/ul (0.8-2.9); LYMPHOCYTES % 10.8 % (15.0-51.0); MEAN CORPUSCULAR HEMOGLOBIN 31.7 pg (29.0-33.0); MEAN CORPUSCULAR HGB CONC 33.5 g/dl (32.0-37.0); MEAN CORPUSCULAR VOLUME 94.9 fl (82.0-101.0); MEAN PLATELET VOLUME 9.7 fl (7.4-10.4); MONOCYTE # 0.7 10^3/ul (0.3-0.9); MONOCYTES % 10.7 % (0.0-11.0); NEUTROPHILS % 75.6 % (39.0-77.0); PLATELET COUNT 85 10^3/UL (140-415); RED BLOOD COUNT 2.93 10^6/ul (4.20-5.40); RED CELL DISTRIBUTION WIDTH 16.6 % (11.5-14.5)
[2018-04-30 10:51] LABS: WHITE BLOOD COUNT 6.7 10^3/ul (4.8-10.8)
[2018-04-30 10:55] LABS: POSITIVE DIFF @See below
[2018-04-30] MEDS: ATORVASTATIN 10 MG TAB PO (21:01)
[2018-05-01 05:05] LABS: ADD MAN DIFF? NO
[2018-05-01 05:07] LABS: WHITE BLOOD COUNT 6.2 10^3/ul (4.8-10.8)
[2018-05-01 05:07] LABS: ABNORMAL IP MESSAGE 1; BASOPHIL # 0.1 10^3/ul (0.0-0.1); EOSINOPHILS # 0.1 10^3/ul (0.0-0.5); EOSINOPHILS % 2.3 % (0.0-7.0); HEMATOCRIT 25.5 % (37.0-47.0); HEMOGLOBIN 8.5 g/dl (12.0-16.0); LYMPHOCYTES # 0.7 10^3/ul (0.8-2.9); LYMPHOCYTES % 10.5 % (15.0-51.0); MEAN CORPUSCULAR HEMOGLOBIN 32.3 pg (29.0-33.0); MEAN CORPUSCULAR HGB CONC 33.3 g/dl (32.0-37.0); MEAN PLATELET VOLUME 9.9 fl (7.4-10.4); MONOCYTE # 0.8 10^3/ul (0.3-0.9); MONOCYTES % 12.8 % (0.0-11.0); NEUTROPHIL # 4.5 10^3/ul (1.6-7.5); NEUTROPHILS % 72.9 % (39.0-77.0); PLATELET COUNT 93 10^3/UL (140-415); RED BLOOD COUNT 2.63 10^6/ul (4.20-5.40); RED CELL DISTRIBUTION WIDTH 16.6 % (11.5-14.5)
[2018-05-01 05:29] LABS: POSITIVE DIFF @See below
[2018-05-01 05:32] LABS: ANION GAP 4 (5-13); BLOOD UREA NITROGEN 32 mg/dl (7-20); CALCIUM 8.6 mg/dl (8.4-10.2); CARBON DIOXIDE 25 mmol/L (21-31); CHLORIDE 108 mmol/L (97-110); CREATININE 1.11 mg/dl (0.44-1.00); GLUCOSE 81 mg/dl (70-220); SODIUM 137 mmol/L (135-144)
[2018-05-01] MEDS: PANTOPRAZOLE (EC) 40 MG TAB PO ×2 (06:00→09:34)
[2018-05-01] MEDS: LEVOTHYROXINE 100 MCG TAB PO (06:37)
[2018-05-01] MEDS: MULTIVITAMINS/MINERALS TAB PO (09:33)
[2018-05-01] MEDS: CALCIUM CARBONATE 1.25 GM TAB PO ×2 (09:34→20:34)
[2018-05-01] MEDS: POLYETHYLENE GLYCOL 17 GM PACKET PO (09:35)
[2018-05-01] MEDS: CYANOCOBALAMIN 500 MCG TAB PO (10:20)
[2018-05-01] MEDS: ATORVASTATIN 10 MG TAB PO (20:34)
[2018-05-02 05:27] LABS: ADD MAN DIFF? NO
[2018-05-02 05:32] LABS: BASOPHILS % 0.6 % (0.0-2.0); EOSINOPHILS # 0.1 10^3/ul (0.0-0.5); EOSINOPHILS % 1.8 % (0.0-7.0); HEMATOCRIT 24.2 % (37.0-47.0); HEMOGLOBIN 7.9 g/dl (12.0-16.0); LYMPHOCYTES # 0.6 10^3/ul (0.8-2.9); LYMPHOCYTES % 10.2 % (15.0-51.0); MEAN CORPUSCULAR HEMOGLOBIN 32.4 pg (29.0-33.0); MEAN CORPUSCULAR HGB CONC 32.6 g/dl (32.0-37.0); MEAN CORPUSCULAR VOLUME 99.2 fl (82.0-101.0); MEAN PLATELET VOLUME 9.6 fl (7.4-10.4); MONOCYTE # 0.8 10^3/ul (0.3-0.9); MONOCYTES % 12.6 % (0.0-11.0); NEUTROPHIL # 4.6 10^3/ul (1.6-7.5); NEUTROPHILS % 74.3 % (39.0-77.0); PLATELET COUNT 101 10^3/UL (140-415); RED BLOOD COUNT 2.44 10^6/ul (4.20-5.40); RED CELL DISTRIBUTION WIDTH 16.3 % (11.5-14.5)
[2018-05-02 05:32] LABS: WHITE BLOOD COUNT 6.2 10^3/ul (4.8-10.8)
[2018-05-02] MEDS: PANTOPRAZOLE (EC) 40 MG TAB PO ×2 (06:12→19:00)
[2018-05-02] MEDS: LEVOTHYROXINE 100 MCG TAB PO (06:12)
[2018-05-02] MEDS: POLYETHYLENE GLYCOL 17 GM PACKET PO (09:00)
[2018-05-02] MEDS: MULTIVITAMINS/MINERALS TAB PO (09:00)
[2018-05-02] MEDS: CYANOCOBALAMIN 500 MCG TAB PO (09:00)
[2018-05-02] MEDS: CALCIUM CARBONATE 1.25 GM TAB PO ×2 (09:48→21:37)
[2018-05-02] MEDS: PEG/ELECTROLYTES 4L BTL PO (10:08)
[2018-05-02] MEDS: BISACODYL (EC) 5 MG TAB PO (10:09)
[2018-05-02] MEDS: FENTAnyl 50 MCG/ML VIAL (13:45)
[2018-05-02] MEDS: MIDAZOLAM 1 MG/ML 2 ML INJ (13:45)
[2018-05-02] MEDS ORDERED: LABETALOL HCL 20MG INJ IV (14:00)
[2018-05-02] MEDS ORDERED: hydrALAzine 20 MG INJ IV (14:00)
[2018-05-02] MEDS ORDERED: ONDANSETRON 4 MG INJ IV (14:00)
[2018-05-02] MEDS: DIATR MEGLU/DIATRIZOATE SODIUM 120 ML BTL (18:13)
[2018-05-02 20:33] LABS: HEMATOCRIT 25.4 % (37.0-47.0); HEMOGLOBIN 8.5 g/dl (12.0-16.0)
[2018-05-02] MEDS: ATORVASTATIN 10 MG TAB PO (21:37)
[2018-05-03 05:24] LABS: ADD MAN DIFF? NO
[2018-05-03 05:30] LABS: ABNORMAL IP MESSAGE 1; BASOPHILS % 0.7 % (0.0-2.0); EOSINOPHILS # 0.1 10^3/ul (0.0-0.5); EOSINOPHILS % 1.3 % (0.0-7.0); HEMATOCRIT 22.7 % (37.0-47.0); HEMOGLOBIN 7.3 g/dl (12.0-16.0); LYMPHOCYTES # 0.6 10^3/ul (0.8-2.9); LYMPHOCYTES % 10.1 % (15.0-51.0); MEAN CORPUSCULAR HGB CONC 32.2 g/dl (32.0-37.0); MEAN CORPUSCULAR VOLUME 99.6 fl (82.0-101.0); MEAN PLATELET VOLUME 9.7 fl (7.4-10.4); MONOCYTE # 0.5 10^3/ul (0.3-0.9); MONOCYTES % 9.4 % (0.0-11.0); NEUTROPHIL # 4.3 10^3/ul (1.6-7.5); NEUTROPHILS % 78.1 % (39.0-77.0); PLATELET COUNT 122 10^3/UL (140-415); RED BLOOD COUNT 2.28 10^6/ul (4.20-5.40); RED CELL DISTRIBUTION WIDTH 16.5 % (11.5-14.5)
[2018-05-03 05:30] LABS: WHITE BLOOD COUNT 5.5 10^3/ul (4.8-10.8)
[2018-05-03 05:35] LABS: ANION GAP 8 (5-13); BLOOD UREA NITROGEN 26 mg/dl (7-20); CALCIUM 8.7 mg/dl (8.4-10.2); CARBON DIOXIDE 27 mmol/L (21-31); CHLORIDE 109 mmol/L (97-110); GLUCOSE 86 mg/dl (70-220); MAGNESIUM 1.9 mg/dl (1.7-2.5); POTASSIUM 3.3 mmol/L (3.5-5.1); SODIUM 144 mmol/L (135-144)
[2018-05-03 05:47] LABS: POSITIVE DIFF @See below
[2018-05-03] MEDS: PANTOPRAZOLE (EC) 40 MG TAB PO ×2 (06:09→18:59)
[2018-05-03] MEDS: LEVOTHYROXINE 100 MCG TAB PO (06:09)
[2018-05-03] MEDS: POTASSIUM CHLORIDE (SR) 20 MEQ TAB PO ×2 (08:58→09:02)
[2018-05-03] MEDS: POLYETHYLENE GLYCOL 17 GM PACKET PO (09:00)
[2018-05-03] MEDS: MULTIVITAMINS/MINERALS TAB PO (09:02)
[2018-05-03] MEDS: CALCIUM CARBONATE 1.25 GM TAB PO ×2 (09:02→21:00)
[2018-05-03] MEDS: MAGNESIUM SULFATE 1 GM/D5W 100 ML IVPB (12:38)
[2018-05-03] MEDS: SOD CHLORIDE 0.9% 1,000 ML IV (12:38)
[2018-05-03] MEDS: ACETYLCYSTEINE 600 MG CAP PO ×2 (14:01→21:11)
[2018-05-03 14:42] LABS: HEMATOCRIT 25.6 % (37.0-47.0); HEMOGLOBIN 8.4 g/dl (12.0-16.0)
[2018-05-03 16:27] LABS: PLATELET ANTIBODY - IGA NEGATIVE (NEGATIVE); PLATELET ANTIBODY - IGG NEGATIVE (NEGATIVE); PLATELET ANTIBODY - IGM NEGATIVE (NEGATIVE)
[2018-05-03] MEDS ORDERED: IODIXANOL LOCM 100 ML BTL (17:34)
[2018-05-03] MEDS ORDERED: FENTAnyl 50 MCG/ML VIAL (17:34)
[2018-05-03] MEDS ORDERED: MIDAZOLAM 1 MG/ML 2 ML INJ (17:34)
[2018-05-03] MEDS ORDERED: LIDOCAINE 1% (MDV) 20 ML INJ (17:34)
[2018-05-03] MEDS ORDERED: HEPARIN 1000 UNITS/NS (A-LINE) 1,000 ML (18:39)
[2018-05-03] MEDS: ATORVASTATIN 10 MG TAB PO (21:10)
[2018-05-03 22:26] LABS: HEMATOCRIT 24.9 % (37.0-47.0); HEMOGLOBIN 8.2 g/dl (12.0-16.0)
[2018-05-04 05:22] LABS: ADD MAN DIFF? NO
[2018-05-04 05:23] LABS: WHITE BLOOD COUNT 7.2 10^3/ul (4.8-10.8)
[2018-05-04 05:23] LABS: BASOPHILS % 0.4 % (0.0-2.0); EOSINOPHILS # 0.1 10^3/ul (0.0-0.5); EOSINOPHILS % 1.5 % (0.0-7.0); HEMATOCRIT 24.2 % (37.0-47.0); LYMPHOCYTES # 0.6 10^3/ul (0.8-2.9); LYMPHOCYTES % 8.4 % (15.0-51.0); MEAN CORPUSCULAR HEMOGLOBIN 32.4 pg (29.0-33.0); MEAN CORPUSCULAR HGB CONC 33.1 g/dl (32.0-37.0); MEAN PLATELET VOLUME 9.5 fl (7.4-10.4); MONOCYTE # 0.8 10^3/ul (0.3-0.9); MONOCYTES % 10.6 % (0.0-11.0); NEUTROPHIL # 5.7 10^3/ul (1.6-7.5); NEUTROPHILS % 78.8 % (39.0-77.0); PLATELET COUNT 107 10^3/UL (140-415); RED BLOOD COUNT 2.47 10^6/ul (4.20-5.40); RED CELL DISTRIBUTION WIDTH 17.3 % (11.5-14.5)
[2018-05-04 05:45] LABS: ANION GAP 8 (5-13); BLOOD UREA NITROGEN 24 mg/dl (7-20); CALCIUM 8.2 mg/dl (8.4-10.2); CARBON DIOXIDE 24 mmol/L (21-31); CHLORIDE 105 mmol/L (97-110); CREATININE 1.01 mg/dl (0.44-1.00); GLUCOSE 84 mg/dl (70-220); PHOSPHORUS 3.3 mg/dl (2.5-4.9); SODIUM 137 mmol/L (135-144)
[2018-05-04] MEDS: PANTOPRAZOLE (EC) 40 MG TAB PO ×2 (06:08→17:57)
[2018-05-04] MEDS: LEVOTHYROXINE 100 MCG TAB PO (07:34)
[2018-05-04] MEDS: POLYETHYLENE GLYCOL 17 GM PACKET PO (09:00)
[2018-05-04] MEDS: CALCIUM CARBONATE 1.25 GM TAB PO ×2 (09:33→22:00)
[2018-05-04] MEDS: ACETYLCYSTEINE 600 MG CAP PO ×2 (09:33→22:01)
[2018-05-04] MEDS: MULTIVITAMINS/MINERALS TAB PO (09:33)
[2018-05-04] MEDS: BALSAM PERU/CASTOR OIL 60 GM TUBE TOP ×2 (09:34→22:01)
[2018-05-04] MEDS: SOD CHLORIDE 0.45% 1,000 ML IV (12:53)
[2018-05-04] MEDS: ACETAMINOPHEN 325 MG TAB PO (18:23)
[2018-05-04 21:04] LABS: CANCER ANTIGEN 125 98.9 U/ml (0.0-35.0)
[2018-05-04] MEDS: SACUBITRIL/VALSARTAN (24mg-26mg) TABLET PO (22:00)
[2018-05-04] MEDS: ATORVASTATIN 10 MG TAB PO (22:01)
[2018-05-05] MEDS: PANTOPRAZOLE (EC) 40 MG TAB PO ×2 (06:00→20:56)
[2018-05-05 06:04] LABS: ANION GAP 7 (5-13); BLOOD UREA NITROGEN 23 mg/dl (7-20); CALCIUM 8.2 mg/dl (8.4-10.2); CARBON DIOXIDE 23 mmol/L (21-31); CHLORIDE 101 mmol/L (97-110); CREATININE 1.11 mg/dl (0.44-1.00); GLUCOSE 86 mg/dl (70-220); MAGNESIUM 1.9 mg/dl (1.7-2.5); PHOSPHORUS 3.3 mg/dl (2.5-4.9); SODIUM 131 mmol/L (135-144)
[2018-05-05] MEDS: LEVOTHYROXINE 100 MCG TAB PO (06:18)
[2018-05-05 08:38] LABS: ADD MAN DIFF? NO
[2018-05-05 08:41] LABS: WHITE BLOOD COUNT 7.2 10^3/ul (4.8-10.8)
[2018-05-05 08:41] LABS: ABNORMAL IP MESSAGE 1; BASOPHILS % 0.6 % (0.0-2.0); EOSINOPHILS # 0.1 10^3/ul (0.0-0.5); EOSINOPHILS % 1.8 % (0.0-7.0); HEMATOCRIT 22.1 % (37.0-47.0); HEMOGLOBIN 7.4 g/dl (12.0-16.0); LYMPHOCYTES # 0.6 10^3/ul (0.8-2.9); LYMPHOCYTES % 8.1 % (15.0-51.0); MEAN CORPUSCULAR HEMOGLOBIN 32.5 pg (29.0-33.0); MEAN CORPUSCULAR HGB CONC 33.5 g/dl (32.0-37.0); MEAN CORPUSCULAR VOLUME 96.9 fl (82.0-101.0); MEAN PLATELET VOLUME 9.7 fl (7.4-10.4); MONOCYTE # 0.6 10^3/ul (0.3-0.9); MONOCYTES % 8.7 % (0.0-11.0); NEUTROPHIL # 5.8 10^3/ul (1.6-7.5); NEUTROPHILS % 80.4 % (39.0-77.0); PLATELET COUNT 102 10^3/UL (140-415); RED BLOOD COUNT 2.28 10^6/ul (4.20-5.40); RED CELL DISTRIBUTION WIDTH 16.8 % (11.5-14.5)
[2018-05-05 08:54] LABS: POSITIVE DIFF @See below
[2018-05-05] MEDS: POLYETHYLENE GLYCOL 17 GM PACKET PO (09:00)
[2018-05-05] MEDS: SOD CHLORIDE 0.45% 1,000 ML IV (09:30)
[2018-05-05] MEDS: ACETYLCYSTEINE 600 MG CAP PO (09:58)
[2018-05-05] MEDS: CALCIUM CARBONATE 1.25 GM TAB PO ×2 (09:59→20:57)
[2018-05-05] MEDS: MULTIVITAMINS/MINERALS TAB PO (09:59)
[2018-05-05] MEDS: BALSAM PERU/CASTOR OIL 60 GM TUBE TOP ×2 (10:00→20:56)
[2018-05-05] MEDS: SACUBITRIL/VALSARTAN (24mg-26mg) TABLET PO (10:00)
[2018-05-05] MEDS: BARIUM SULFATE 0.1% 450 ML BTL (VOLUMEN) PO ×3 (11:30)
[2018-05-05] MEDS: IOHEXOL 350MG/ML 50 ML BTL (11:30)
[2018-05-05] MEDS: SOD CHLORIDE 0.9% 100 ML (11:30)
[2018-05-05] MEDS: IOHEXOL 100 ML (11:30)
[2018-05-05] MEDS: DESMOPRESSIN 20 MCG in SOD CHLORIDE 0.9% 50 ML IVPB (12:00)
[2018-05-05] MEDS: GLUCAGON 1 MG INJ (13:20)
[2018-05-05] MEDS: GLUCAGON 1 MG INJ IV (13:30)
[2018-05-05 16:52] LABS: COLLAGEN/EPI 160 Secs. (51-198)
[2018-05-05 20:43] LABS: IMMEDIATE SPIN CROSSMATCH 1 3
[2018-05-05] MEDS: SOD CHLORIDE 0.9% 250 ML IV* (20:43)
[2018-05-05] MEDS: ATORVASTATIN 10 MG TAB PO (20:56)
[2018-05-06 01:15] LABS: HEMATOCRIT 29.7 % (37.0-47.0)
[2018-05-06 05:00] LABS: ADD MAN DIFF? NO
[2018-05-06 05:05] LABS: WHITE BLOOD COUNT 5.7 10^3/ul (4.8-10.8)
[2018-05-06 05:05] LABS: ABNORMAL IP MESSAGE 1; BASOPHILS % 0.7 % (0.0-2.0); EOSINOPHILS # 0.1 10^3/ul (0.0-0.5); EOSINOPHILS % 2.1 % (0.0-7.0); HEMATOCRIT 30.8 % (37.0-47.0); HEMOGLOBIN 10.2 g/dl (12.0-16.0); LYMPHOCYTES # 0.6 10^3/ul (0.8-2.9); LYMPHOCYTES % 10.9 % (15.0-51.0); MEAN CORPUSCULAR HEMOGLOBIN 31.1 pg (29.0-33.0); MEAN CORPUSCULAR HGB CONC 33.1 g/dl (32.0-37.0); MEAN CORPUSCULAR VOLUME 93.9 fl (82.0-101.0); MEAN PLATELET VOLUME 9.6 fl (7.4-10.4); MONOCYTE # 0.5 10^3/ul (0.3-0.9); MONOCYTES % 8.4 % (0.0-11.0); NEUTROPHIL # 4.4 10^3/ul (1.6-7.5); NEUTROPHILS % 77.4 % (39.0-77.0); PLATELET COUNT 99 10^3/UL (140-415); RED BLOOD COUNT 3.28 10^6/ul (4.20-5.40); RED CELL DISTRIBUTION WIDTH 16.4 % (11.5-14.5)
[2018-05-06 05:08] LABS: POSITIVE DIFF @See below
[2018-05-06 05:39] LABS: ANION GAP 4 (5-13); BLOOD UREA NITROGEN 18 mg/dl (7-20); CALCIUM 8.6 mg/dl (8.4-10.2); CARBON DIOXIDE 22 mmol/L (21-31); CHLORIDE 105 mmol/L (97-110); CREATININE 0.88 mg/dl (0.44-1.00); GLUCOSE 72 mg/dl (70-220); POTASSIUM 4.1 mmol/L (3.5-5.1); SODIUM 131 mmol/L (135-144)
[2018-05-06] MEDS: PANTOPRAZOLE (EC) 40 MG TAB PO ×2 (07:42→18:35)
[2018-05-06] MEDS: LEVOTHYROXINE 100 MCG TAB PO (07:42)
[2018-05-06] MEDS: BALSAM PERU/CASTOR OIL 60 GM TUBE TOP ×2 (09:00→20:34)
[2018-05-06] MEDS: CALCIUM CARBONATE 1.25 GM TAB PO ×2 (09:05→20:29)
[2018-05-06] MEDS: MULTIVITAMINS/MINERALS TAB PO (09:05)
[2018-05-06] MEDS: POLYETHYLENE GLYCOL 17 GM PACKET PO (09:08)
[2018-05-06 18:47] LABS: HEMATOCRIT 30.8 % (37.0-47.0); HEMOGLOBIN 10.1 g/dl (12.0-16.0)
[2018-05-06 18:48] LABS: ADD UMIC YES; UR ASCORBIC ACID 40 mg/dL (NEGATIVE); UR BACTERIA FEW /HPF (NONE SEEN); UR BILIRUBIN (Dip) NEGATIVE (NEGATIVE); UR BLOOD (Dip) 1+ mg/dL (NEGATIVE); UR CLARITY CLOUDY (CLEAR); UR COLOR YELLOW (YELLOW); UR GLUCOSE (Dip) NEGATIVE (NEGATIVE); UR KETONES (Dip) NEGATIVE (NEGATIVE); UR LEUKOCYTE ESTERASE (Dip) 3+ Leu/ul (NEGATIVE); UR MUCUS FEW /HPF (NONE SEEN); UR NITRITE (Dip) NEGATIVE (NEGATIVE); UR RBC 11 /HPF (0-5); UR SPECIFIC GRAVITY (Dip) 1.027 (1.003-1.030); UR SQUAMOUS EPITHELIAL CELL MODERATE /HPF (FEW); UR TOTAL PROTEIN (Dip) NEGATIVE (NEGATIVE); UR UROBILINOGEN (Dip) NEGATIVE (NEGATIVE); UR WBC 139 /HPF (0-5)
[2018-05-06] MEDS: ATORVASTATIN 10 MG TAB PO (20:28)
[2018-05-06] MEDS: SACUBITRIL/VALSARTAN (24mg-26mg) TABLET PO (20:29)
[2018-05-06] MEDS: LEVOFLOXACIN 500 MG TAB PO (23:54)
[2018-05-07 05:41] LABS: ADD MAN DIFF? NO
[2018-05-07 05:47] LABS: ABNORMAL IP MESSAGE 1; BASOPHIL # 0.1 10^3/ul (0.0-0.1); EOSINOPHILS # 0.2 10^3/ul (0.0-0.5); EOSINOPHILS % 2.3 % (0.0-7.0); HEMATOCRIT 29.4 % (37.0-47.0); HEMOGLOBIN 9.7 g/dl (12.0-16.0); LYMPHOCYTES # 0.5 10^3/ul (0.8-2.9); MEAN CORPUSCULAR VOLUME 93.9 fl (82.0-101.0); MEAN PLATELET VOLUME 9.4 fl (7.4-10.4); MONOCYTE # 0.5 10^3/ul (0.3-0.9); MONOCYTES % 7.4 % (0.0-11.0); NEUTROPHIL # 5.7 10^3/ul (1.6-7.5); NEUTROPHILS % 81.9 % (39.0-77.0); PLATELET COUNT 113 10^3/UL (140-415); RED BLOOD COUNT 3.13 10^6/ul (4.20-5.40); RED CELL DISTRIBUTION WIDTH 17.1 % (11.5-14.5)
[2018-05-07 06:04] LABS: POSITIVE DIFF @See below
[2018-05-07 06:15] LABS: ANION GAP 2 (5-13); BLOOD UREA NITROGEN 21 mg/dl (7-20); CARBON DIOXIDE 25 mmol/L (21-31); CHLORIDE 107 mmol/L (97-110); CREATININE 1.01 mg/dl (0.44-1.00); GLUCOSE 79 mg/dl (70-220); POTASSIUM 4.4 mmol/L (3.5-5.1); SODIUM 134 mmol/L (135-144)
[2018-05-07 06:15] LABS: PHOSPHORUS 3.6 mg/dl (2.5-4.9)
[2018-05-07] MEDS: PANTOPRAZOLE (EC) 40 MG TAB PO ×2 (06:36→17:47)
[2018-05-07] MEDS: LEVOFLOXACIN 500 MG TAB PO (06:36)
[2018-05-07] MEDS: LEVOTHYROXINE 100 MCG TAB PO (06:36)
[2018-05-07] MEDS: POLYETHYLENE GLYCOL 17 GM PACKET PO (09:46)
[2018-05-07] MEDS: MULTIVITAMINS/MINERALS TAB PO (09:46)
[2018-05-07] MEDS: SACUBITRIL/VALSARTAN (24mg-26mg) TABLET PO ×2 (09:46→21:45)
[2018-05-07] MEDS: BALSAM PERU/CASTOR OIL 60 GM TUBE TOP ×2 (09:47→21:45)
[2018-05-07] MEDS: CALCIUM CARBONATE 1.25 GM TAB PO ×2 (09:47→21:45)
[2018-05-07] MEDS: ATORVASTATIN 10 MG TAB PO (21:45)
[2018-05-07 23:42] LABS: HEMATOCRIT 26.6 % (37.0-47.0); HEMOGLOBIN 8.8 g/dl (12.0-16.0)
[2018-05-08 05:26] LABS: ADD MAN DIFF? NO; BASOPHIL # 0.1 10^3/ul (0.0-0.1); BASOPHILS % 0.7 % (0.0-2.0); EOSINOPHILS # 0.2 10^3/ul (0.0-0.5); EOSINOPHILS % 2.2 % (0.0-7.0); HEMATOCRIT 27.3 % (37.0-47.0); HEMOGLOBIN 8.9 g/dl (12.0-16.0); LYMPHOCYTES # 0.6 10^3/ul (0.8-2.9); LYMPHOCYTES % 8.6 % (15.0-51.0); MEAN CORPUSCULAR HEMOGLOBIN 31.3 pg (29.0-33.0); MEAN CORPUSCULAR HGB CONC 32.6 g/dl (32.0-37.0); MEAN CORPUSCULAR VOLUME 96.1 fl (82.0-101.0); MEAN PLATELET VOLUME 9.5 fl (7.4-10.4); MONOCYTE # 0.7 10^3/ul (0.3-0.9); MONOCYTES % 9.1 % (0.0-11.0); NEUTROPHIL # 5.7 10^3/ul (1.6-7.5); NEUTROPHILS % 78.7 % (39.0-77.0); PLATELET COUNT 110 10^3/UL (140-415); RED BLOOD COUNT 2.84 10^6/ul (4.20-5.40); RED CELL DISTRIBUTION WIDTH 17.1 % (11.5-14.5)
[2018-05-08 05:26] LABS: WHITE BLOOD COUNT 7.2 10^3/ul (4.8-10.8)
[2018-05-08] MEDS: LEVOFLOXACIN 500 MG TAB PO (05:49)
[2018-05-08] MEDS: PANTOPRAZOLE (EC) 40 MG TAB PO ×2 (05:49→17:20)
[2018-05-08] MEDS: LEVOTHYROXINE 100 MCG TAB PO (05:49)
[2018-05-08 06:19] LABS: ANION GAP 6 (5-13); BLOOD UREA NITROGEN 23 mg/dl (7-20); CALCIUM 8.9 mg/dl (8.4-10.2); CARBON DIOXIDE 24 mmol/L (21-31); CHLORIDE 106 mmol/L (97-110); CREATININE 1.12 mg/dl (0.44-1.00); GLUCOSE 81 mg/dl (70-220); MAGNESIUM 1.8 mg/dl (1.7-2.5); PHOSPHORUS 3.2 mg/dl (2.5-4.9); POTASSIUM 4.2 mmol/L (3.5-5.1); SODIUM 136 mmol/L (135-144)
[2018-05-08] MEDS: SACUBITRIL/VALSARTAN (24mg-26mg) TABLET PO ×3 (09:00→20:23)
[2018-05-08] MEDS: BALSAM PERU/CASTOR OIL 60 GM TUBE TOP ×2 (09:28→20:23)
[2018-05-08] MEDS: POLYETHYLENE GLYCOL 17 GM PACKET PO (09:28)
[2018-05-08] MEDS: CALCIUM CARBONATE 1.25 GM TAB PO ×2 (09:28→20:23)
[2018-05-08] MEDS: MULTIVITAMINS/MINERALS TAB PO (09:28)
[2018-05-08] MEDS: ACETAMINOPHEN 325 MG TAB PO (18:21)
[2018-05-08] MEDS: ATORVASTATIN 10 MG TAB PO (20:23)
[2018-05-08 21:04] LABS: HEMATOCRIT 25.5 % (37.0-47.0); HEMOGLOBIN 8.2 g/dl (12.0-16.0)
[2018-05-08] MEDS: ALBUMIN HUMAN 25% 100 ML IV (22:25)
[2018-05-09 05:25] LABS: ADD MAN DIFF? NO
[2018-05-09 05:28] LABS: ABNORMAL IP MESSAGE 1; BASOPHILS % 0.6 % (0.0-2.0); EOSINOPHILS # 0.2 10^3/ul (0.0-0.5); EOSINOPHILS % 2.9 % (0.0-7.0); HEMATOCRIT 23.2 % (37.0-47.0); HEMOGLOBIN 7.4 g/dl (12.0-16.0); LYMPHOCYTES # 0.7 10^3/ul (0.8-2.9); LYMPHOCYTES % 11.8 % (15.0-51.0); MEAN CORPUSCULAR HEMOGLOBIN 30.7 pg (29.0-33.0); MEAN CORPUSCULAR HGB CONC 31.9 g/dl (32.0-37.0); MEAN CORPUSCULAR VOLUME 96.3 fl (82.0-101.0); MEAN PLATELET VOLUME 9.6 fl (7.4-10.4); MONOCYTE # 0.6 10^3/ul (0.3-0.9); MONOCYTES % 9.7 % (0.0-11.0); NEUTROPHIL # 4.6 10^3/ul (1.6-7.5); NEUTROPHILS % 74.4 % (39.0-77.0); PLATELET COUNT 91 10^3/UL (140-415); RED BLOOD COUNT 2.41 10^6/ul (4.20-5.40); RED CELL DISTRIBUTION WIDTH 17.1 % (11.5-14.5)
[2018-05-09 05:28] LABS: WHITE BLOOD COUNT 6.2 10^3/ul (4.8-10.8)
[2018-05-09 05:44] LABS: POSITIVE DIFF @See below
[2018-05-09 06:03] LABS: ANION GAP 2 (5-13); BLOOD UREA NITROGEN 22 mg/dl (7-20); CALCIUM 8.9 mg/dl (8.4-10.2); CARBON DIOXIDE 26 mmol/L (21-31); CHLORIDE 109 mmol/L (97-110); CREATININE 1.18 mg/dl (0.44-1.00); GLUCOSE 83 mg/dl (70-220); POTASSIUM 4.2 mmol/L (3.5-5.1); SODIUM 137 mmol/L (135-144)
[2018-05-09] MEDS: PANTOPRAZOLE (EC) 40 MG TAB PO ×2 (06:09→17:30)
[2018-05-09] MEDS: LEVOFLOXACIN 500 MG TAB PO (06:09)
[2018-05-09] MEDS: LEVOTHYROXINE 100 MCG TAB PO (06:09)
[2018-05-09] MEDS: ACETAMINOPHEN 325 MG TAB PO ×2 (07:54→18:59)
[2018-05-09] MEDS: MULTIVITAMINS/MINERALS TAB PO (09:00)
[2018-05-09] MEDS: CALCIUM CARBONATE 1.25 GM TAB PO ×2 (09:00→21:06)
[2018-05-09] MEDS: SACUBITRIL/VALSARTAN (24mg-26mg) TABLET PO ×2 (09:01→21:06)
[2018-05-09] MEDS: POLYETHYLENE GLYCOL 17 GM PACKET PO (09:01)
[2018-05-09] MEDS: BALSAM PERU/CASTOR OIL 60 GM TUBE TOP ×2 (09:11→21:00)
[2018-05-09] MEDS: SOD CHLORIDE 0.9% 250 ML IV* (12:21)
[2018-05-09 12:35] LABS: IMMEDIATE SPIN CROSSMATCH 1 1
[2018-05-09] MEDS: ATORVASTATIN 10 MG TAB PO (21:05)
[2018-05-10 05:38] LABS: ADD MAN DIFF? NO
[2018-05-10 05:44] LABS: ABNORMAL IP MESSAGE 1; BASOPHIL # 0.1 10^3/ul (0.0-0.1); BASOPHILS % 0.9 % (0.0-2.0); EOSINOPHILS # 0.2 10^3/ul (0.0-0.5); EOSINOPHILS % 3.3 % (0.0-7.0); HEMATOCRIT 28.8 % (37.0-47.0); HEMOGLOBIN 9.3 g/dl (12.0-16.0); LYMPHOCYTES # 0.7 10^3/ul (0.8-2.9); LYMPHOCYTES % 10.8 % (15.0-51.0); MEAN CORPUSCULAR HEMOGLOBIN 30.6 pg (29.0-33.0); MEAN CORPUSCULAR HGB CONC 32.3 g/dl (32.0-37.0); MEAN CORPUSCULAR VOLUME 94.7 fl (82.0-101.0); MEAN PLATELET VOLUME 9.5 fl (7.4-10.4); MONOCYTE # 0.6 10^3/ul (0.3-0.9); MONOCYTES % 9.3 % (0.0-11.0); NEUTROPHILS % 75.1 % (39.0-77.0); PLATELET COUNT 97 10^3/UL (140-415); RED BLOOD COUNT 3.04 10^6/ul (4.20-5.40); RED CELL DISTRIBUTION WIDTH 17.2 % (11.5-14.5)
[2018-05-10 05:44] LABS: WHITE BLOOD COUNT 6.6 10^3/ul (4.8-10.8)
[2018-05-10 05:52] LABS: POSITIVE DIFF @See below
[2018-05-10 06:10] LABS: ANION GAP 6 (5-13); BLOOD UREA NITROGEN 23 mg/dl (7-20); CALCIUM 8.8 mg/dl (8.4-10.2); CARBON DIOXIDE 27 mmol/L (21-31); CHLORIDE 105 mmol/L (97-110); CREATININE 1.09 mg/dl (0.44-1.00); GLUCOSE 86 mg/dl (70-220); POTASSIUM 4.2 mmol/L (3.5-5.1); SODIUM 138 mmol/L (135-144)
[2018-05-10] MEDS: LEVOFLOXACIN 500 MG TAB PO (06:19)
[2018-05-10] MEDS: LEVOTHYROXINE 100 MCG TAB PO (06:20)
[2018-05-10] MEDS: PANTOPRAZOLE (EC) 40 MG TAB PO ×2 (06:20→17:21)
[2018-05-10] MEDS: CALCIUM CARBONATE 1.25 GM TAB PO ×2 (08:50→21:32)
[2018-05-10] MEDS: MULTIVITAMINS/MINERALS TAB PO (08:50)
[2018-05-10] MEDS: SACUBITRIL/VALSARTAN (24mg-26mg) TABLET PO ×2 (08:50→21:32)
[2018-05-10] MEDS: BALSAM PERU/CASTOR OIL 60 GM TUBE TOP ×2 (09:00→21:33)
[2018-05-10] MEDS: ACETAMINOPHEN 325 MG TAB PO (14:52)
[2018-05-10] MEDS: ATORVASTATIN 10 MG TAB PO (21:32)
[2018-05-11] MEDS: LEVOTHYROXINE 100 MCG TAB PO (05:18)
[2018-05-11] MEDS: PANTOPRAZOLE (EC) 40 MG TAB PO ×2 (05:18→18:04)
[2018-05-11 05:19] LABS: ADD MAN DIFF? NO
[2018-05-11 05:27] LABS: BASOPHIL # 0.1 10^3/ul (0.0-0.1); BASOPHILS % 1.1 % (0.0-2.0); EOSINOPHILS # 0.3 10^3/ul (0.0-0.5); EOSINOPHILS % 3.9 % (0.0-7.0); HEMATOCRIT 25.9 % (37.0-47.0); HEMOGLOBIN 8.2 g/dl (12.0-16.0); LYMPHOCYTES # 0.7 10^3/ul (0.8-2.9); LYMPHOCYTES % 11.2 % (15.0-51.0); MEAN CORPUSCULAR HEMOGLOBIN 30.7 pg (29.0-33.0); MEAN CORPUSCULAR HGB CONC 31.7 g/dl (32.0-37.0); MEAN PLATELET VOLUME 9.3 fl (7.4-10.4); MONOCYTE # 0.7 10^3/ul (0.3-0.9); MONOCYTES % 10.7 % (0.0-11.0); NEUTROPHIL # 4.8 10^3/ul (1.6-7.5); NEUTROPHILS % 72.5 % (39.0-77.0); PLATELET COUNT 105 10^3/UL (140-415); RED BLOOD COUNT 2.67 10^6/ul (4.20-5.40); RED CELL DISTRIBUTION WIDTH 17.4 % (11.5-14.5)
[2018-05-11 05:27] LABS: WHITE BLOOD COUNT 6.6 10^3/ul (4.8-10.8)
[2018-05-11 06:17] LABS: ANION GAP 2 (5-13); BLOOD UREA NITROGEN 21 mg/dl (7-20); CALCIUM 7.5 mg/dl (8.4-10.2); CARBON DIOXIDE 23 mmol/L (21-31); CHLORIDE 116 mmol/L (97-110); CREATININE 1.09 mg/dl (0.44-1.00); GLUCOSE 81 mg/dl (70-220); POTASSIUM 3.7 mmol/L (3.5-5.1); SODIUM 141 mmol/L (135-144)
[2018-05-11] MEDS: ACETAMINOPHEN 325 MG TAB PO (06:40)
[2018-05-11] MEDS: MULTIVITAMINS/MINERALS TAB PO (08:48)
[2018-05-11] MEDS: CALCIUM CARBONATE 1.25 GM TAB PO ×2 (08:48→20:44)
[2018-05-11] MEDS: SACUBITRIL/VALSARTAN (24mg-26mg) TABLET PO ×2 (08:48→20:45)
[2018-05-11] MEDS: BALSAM PERU/CASTOR OIL 60 GM TUBE TOP ×2 (09:00→20:45)
[2018-05-11] MEDS: ATORVASTATIN 10 MG TAB PO (20:44)
[2018-05-12 06:22] LABS: ADD MAN DIFF? NO
[2018-05-12 06:27] LABS: WHITE BLOOD COUNT 6.3 10^3/ul (4.8-10.8)
[2018-05-12 06:27] LABS: BASOPHIL # 0.1 10^3/ul (0.0-0.1); BASOPHILS % 1.1 % (0.0-2.0); EOSINOPHILS # 0.2 10^3/ul (0.0-0.5); EOSINOPHILS % 3.2 % (0.0-7.0); HEMATOCRIT 25.1 % (37.0-47.0); HEMOGLOBIN 7.8 g/dl (12.0-16.0); LYMPHOCYTES # 0.7 10^3/ul (0.8-2.9); LYMPHOCYTES % 10.4 % (15.0-51.0); MEAN CORPUSCULAR HGB CONC 31.1 g/dl (32.0-37.0); MEAN CORPUSCULAR VOLUME 96.5 fl (82.0-101.0); MEAN PLATELET VOLUME 9.4 fl (7.4-10.4); MONOCYTE # 0.6 10^3/ul (0.3-0.9); NEUTROPHIL # 4.8 10^3/ul (1.6-7.5); NEUTROPHILS % 75.7 % (39.0-77.0); PLATELET COUNT 108 10^3/UL (140-415); RED CELL DISTRIBUTION WIDTH 17.1 % (11.5-14.5)
[2018-05-12] MEDS: PANTOPRAZOLE (EC) 40 MG TAB PO (06:44)
[2018-05-12] MEDS: LEVOTHYROXINE 100 MCG TAB PO (06:44)
[2018-05-12] MEDS: DOCUSATE SODIUM 100 MG CAP PO (06:45)
[2018-05-12 06:48] LABS: ANION GAP 1 (5-13); BLOOD UREA NITROGEN 24 mg/dl (7-20); CALCIUM 8.8 mg/dl (8.4-10.2); CARBON DIOXIDE 28 mmol/L (21-31); CHLORIDE 109 mmol/L (97-110); CREATININE 1.05 mg/dl (0.44-1.00); GLUCOSE 90 mg/dl (70-220); POTASSIUM 4.4 mmol/L (3.5-5.1); SODIUM 138 mmol/L (135-144)
[2018-05-12] MEDS: MULTIVITAMINS/MINERALS TAB PO (08:35)
[2018-05-12] MEDS: CALCIUM CARBONATE 1.25 GM TAB PO (08:36)
[2018-05-12] MEDS: SACUBITRIL/VALSARTAN (24mg-26mg) TABLET PO (08:37)
[2018-05-12] MEDS: BALSAM PERU/CASTOR OIL 60 GM TUBE TOP (09:00)
== END 2018-05-12 17:50 | disposition short-term general hospital (02) | DRG 378 ==
LOC: MS1 04-27 16:54 → 6WM 05-11 13:40 → E/R 16:45 → 6WM 19:26
PROVIDERS: Hospitalist
PROC: 0DJD8ZZ Inspection of Lower Intestinal Tract, Via Natural or Artificial Opening Endoscopic (ICD-10-PCS; principal; 2018-04-20 12:45)
PROC: 0DB68ZX Excision of Stomach, Via Natural or Artificial Opening Endoscopic, Diagnostic (ICD-10-PCS; 2018-04-20 12:45)
PROC: 30233N1 Transfusion of Nonautologous Red Blood Cells into Peripheral Vein, Percutaneous Approach (ICD-10-PCS; 2018-04-20 12:45)
PROC: 02HV33Z Insertion of Infusion Device into Superior Vena Cava, Percutaneous Approach (ICD-10-PCS; 2018-04-20 12:45)
PROC: B415YZZ Fluoroscopy of Inferior Mesenteric Artery using Other Contrast (ICD-10-PCS; 2018-04-20 12:45)
PROC: B414YZZ Fluoroscopy of Superior Mesenteric Artery using Other Contrast (ICD-10-PCS; 2018-04-20 12:45)
PROC: B410YZZ Fluoroscopy of Abdominal Aorta using Other Contrast (ICD-10-PCS; 2018-04-20 12:45)
DX: K57.31 Diverticulosis of large intestine without perforation or abscess with bleeding (principal); N17.9 Acute kidney failure, unspecified; I13.0 Hypertensive heart and chronic kidney disease with heart failure and stage 1 through stage 4 chronic kidney disease, or unspecified chronic kidney disease; D62 Acute posthemorrhagic anemia; E44.1 Mild protein-calorie malnutrition; E87.1 Hypo-osmolality and hyponatremia; I50.22 Chronic systolic (congestive) heart failure; I42.9 Cardiomyopathy, unspecified; I31.3 Pericardial effusion (noninflammatory); D69.6 Thrombocytopenia, unspecified; E78.5 Hyperlipidemia, unspecified; E03.9 Hypothyroidism, unspecified; F03.90 Unspecified dementia, unspecified severity, without behavioral disturbance, psychotic disturbance, mood disturbance, and anxiety; I25.10 Atherosclerotic heart disease of native coronary artery without angina pectoris; I49.5 Sick sinus syndrome; I48.2 Chronic atrial fibrillation; K63.5 Polyp of colon; K20.9 Esophagitis, unspecified; K29.70 Gastritis, unspecified, without bleeding; K92.1 Melena; N18.9 Chronic kidney disease, unspecified; Z95.0 Presence of cardiac pacemaker; Z95.2 Presence of prosthetic heart valve; Z86.73 Personal history of transient ischemic attack (TIA), and cerebral infarction without residual deficits; Z79.01 Long term (current) use of anticoagulants
CPT/HCPCS: 36415; 36430; 36569; 71045; 74176; 74178; 74250; 76856; 76937; 78278; 80048; 80053; 80061; 81001; 81003; 82043; 82270; 82378; 82607; 82728; 82962; 83036; 83540; 83615; 83735; 83880; 84100; 84155; 84300; 84439; 84443; 84484; 85014; 85018; 85025; 85049; 85362; 85378; 85384; 85576; 85610; 85670; 85730; 86022; 86304; 86644; 86850; 86900; 86901; 86920; 88305; 92610; 93005; 93306; 97110; 97116; 97162; 97165; 97530; 97535; 99285-25

== ENCOUNTER → 2018-06-15 | Outpatient (CLI) | payer MEDICARE, OTHER | END | disposition home or self-care (01) | LOC: RAD 16:10 | DX: J18.9 Pneumonia, unspecified organism (principal); I51.7 Cardiomegaly; J90 Pleural effusion, not elsewhere classified; J98.11 Atelectasis | CPT/HCPCS: 71046 ==